=== PATIENT | male | born 1955 | race Caucasian/White ===

== ENCOUNTER 2017-06-29 16:46 | Observation (INO) | payer OTHER ==
[2017-06-29 17:07] VITALS: BMI 24.3
[2017-06-29] MEDS ORDERED: SODIUM CHLORIDE 1,000 ML IV STA (17:41)
[2017-06-29 17:46] LABS: BASOPHIL 1.4 % (0-2.0); EOSINOPHIL 0.7 % (0-4.5); MCH 29.2 pg (25.7-33.7); MCHC 33.5 g/dl (32.0-35.9); MEAN CELL VOLUME 87.3 fl (80-96); MEAN PLT VOLUME 9.9 fl (7.5-11.1); NEUTROPHILS 64.3 % (42.8-82.8); PLATELET COUNT 175 K/MM3 (134-434); RDW 13.9 % (11.9-15.9); WHITE BLOOD COUNT 8.5 K/mm3 (4.0-10.0)
[2017-06-29 17:57] LABS: INR 1.07 (0.82-1.09); PROTHROMBIN TIME (PATIENT) 11.8 SEC (9.98-11.88)
--- NOTE | 2017-06-29 17:59 | PDOC ---
History of Present Illness - General History Source: Patient, Family Exam Limitations: Clinical Condition <Calixto Heck - Last Filed: 06/29/17 18:43> - History of Present Illness Initial Comments: 06/29/17 18:00 The patient is a 62 year old male with history of multiple sclerosis brought in by EMS for altered mental status this afternoon. Per EMS, the patient was at [facility] for a neurology appointment went he went to the restroom, took off his pants, and went outside and started eating grass. The patient states he took off his pants because he "felt hot". Patient is a poor historian and provides a limited history. His and best friend at bedside states that the patient has not been himself for the past month. Patient states he took cyclobenzaprine today, but is unclear how much he took. No fever or chills. No nausea, vomiting , or diarrhea. <Susie Brady - Last Filed: 06/29/17 19:01> - General Chief Complaint: Altered Mental Status Stated Complaint: DEHYDRATION Time Seen by Provider: 06/29/17 16:54 Past History - Past Medical History Anemia: No Asthma: No Cancer: No Cardiac Disorders: No CVA: No COPD: No CHF: No Dementia: No Diabetes: No GI Disorders: No Disorders: No HTN: No Hypercholesterolemia: No Liver Disease: No Seizures: No Thyroid Disease: No - Surgical History Abdominal Surgery: Yes (colon resection divertic,colostomy) Appendectomy: Yes Cardiac Surgery: No Lung Surgery: No Neurologic Surgery: No Orthopedic Surgery: Yes (mari acl repair, r TKR) - Suicide/Smoking/Psychosocial Hx Smoking History: Current every day smoker Have you smoked in the past 12 months: Yes Number of Cigarettes Smoked Daily: 10 Information on smoking cessation initiated: No Hx Alcohol Use: No (denies) Drug/Substance Use Hx: No (denies) Substance Use Type: None, Marijuana Hx Substance Use Treatment: No <Calixto Heck - Last Filed: 06/29/17 18:43> <Susie Brady - Last Filed: 06/29/17 19:01> - Past Medical History Allergies/Adverse Reactions: Allergies Allergy/AdvReac Type Severity Reaction Status Date / Time celecoxib [From Celebrex] Allergy Intermediate Hives Verified 06/29/17 17:08 Home Medications: Ambulatory Orders Cyclobenzaprine HCl [Flexeril -] 10 mg PO PRN PRN #0 tablet 12/04/11 Exalgo 8 mg PO HS #0 12/04/11 Exalgo 16 mg PO DAILY #0 12/04/11 Pregabalin [Lyrica] 200 mg PO TID #0 capsule 12/04/11 Dalfampridine [Ampyra] 10 mg PO DAILY 06/29/17 Dextroamphetamine Sulfate [Dexedrine] 5 mg PO DAILY 06/29/17 Review of Systems - Review of Systems Able to Perform ROS?: Yes Comments:: 06/29/17 18:21 ROS per HPI and otherwise limited by AMS. <Susie Brady - Last Filed: 06/29/17 19:01> *Physical Exam - Vital Signs Last Vital Signs Temp Pulse Resp BP Pulse Ox 98.7 F 115 H 18 155/102 99 06/29/17 17:00 06/29/17 17:00 06/29/17 17:00 06/29/17 17:00 06/29/17 17:00 <Calixto Heck - Last Filed: 06/29/17 18:43> - Vital Signs Last Vital Signs Temp Pulse Resp BP Pulse Ox 98.7 F 115 H 18 155/102 99 06/29/17 17:00 06/29/17 17:00 06/29/17 17:00 06/29/17 17:00 06/29/17 17:00 - Physical Exam Comments: 06/29/17 18:23 GENERAL: Awake, alert, and oriented to year and location but doesn't know month. Intermittently confused but alert and responds to verbal stimuli. HEAD: No signs of trauma EYES: PERRLA, EOMI, sclera anicteric, conjunctiva clear ENT: Auricles normal inspection, hearing grossly normal, nares patent, oropharynx clear without exudates. Moist mucosa NECK: Normal ROM, supple, no lymphadenopathy, JVD, or masses LUNGS: Breath sounds equal, clear to auscultation bilaterally. No wheezes, and no crackles HEART: Tachycardic rate, normal S1 and S2, no murmurs, rubs or gallops ABDOMEN: Soft, nontender, normoactive bowel sounds. No guarding, no rebound. No masses EXTREMITIES: Normal range of motion, no edema. No clubbing or cyanosis. No cords, erythema, or tenderness NEUROLOGICAL: Cranial nerves II through XII grossly intact. Occasionally slurred speech, gait deferred. SKIN: Warm, Dry, normal turgor, no rashes or lesions noted. <Susie Brady - Last Filed: 06/29/17 19:01> Heart Score/ECG Review #1 ECG reviewed & interpreted by me at: 17:10 06/29/17 17:51 NSR 112, no std/koffi, TWI III, normal axis, normal intervals, QC 464 msec <Calixto Heck - Last Filed: 06/29/17 18:43> ED Treatment Course - LABORATORY CBC & Chemistry Diagram: 06/29/17 17:37 06/29/17 17:37 - ADDITIONAL ORDERS Additional order review: Laboratory Results 06/29/17 17:05 POC Glucometer 111.01440 06/29/17 17:05 POC Glucometer 111.39612 - RADIOLOGY Radiology Studies Ordered: Category Date Time Status HEAD CT WITHOUT CONTRAST [CT] Stat CT Scan 06/29/17 17:24 Ordered CHEST X-RAY PORTABLE* [RAD] Stat Radiology 06/29/17 17:24 Ordered <Calixto Heck - Last Filed: 06/29/17 18:43> - LABORATORY CBC & Chemistry Diagram: 06/29/17 17:37 06/29/17 17:37 - ADDITIONAL ORDERS Additional order review: Laboratory Results 06/29/17 17:05 POC Glucometer [id number] 06/29/17 17:05 POC Glucometer 111.99191 - RADIOLOGY Radiograph Interpretation: 06/29/17 18:[address] without contrast, read and reviewed by Dr. Ford Impression: Moderate bilateral periventricular white matter hypodense foci are noted - ? microvascular ischemic gliosis, demyelinating disease, acute/chronic toxic metabolic encephalopathy, AIDS, encephalopathy, vasculitis. Correlate clinically. A fracture is seen in the mid aspect of the right zygomatic arch which is probably chronic. Correlate clinically. <Susie Brady - Last Filed: 06/29/17 19:01> Medical Decision Making - Medical Decision Making 06/29/17 17:51 A portion of this note was documented by scribe services under my direction. I have reviewed the details of the note, within reason, and agree with the documentation with the following case summary and management plan written by me. Patient treated in the ED. Nursing notes are reviewed and incorporated into the medical decision-making. Vital signs reviewed. Peripheral IV access obtained by the nurse, laboratory studies are drawn and sent, reviewed and interpreted by myself. Vital Signs Temp Pulse Resp BP Pulse Ox 98.7 F 115 H 18 155/102 99 06/29/17 17:00 10 17:00 06/29/17 17:00 06/29/17 17:00 06/29/17 17:00 62-year-old With past medical history multiple sclerosis presents with altered mental status. The patient's has noted that the last 2 weeks, patient has become slightly increasingly more confused and "loopy". The patient has ran out of her regular pain medications has been using cyclobenzaprine as well as Lyrica for his multiple sclerosis. It is unclear what his dosage that he's been taking. Today, he went to an appointment at [facility]. Patient was found in the parking lot to be pansinus and eating grass. Patient denies any pain. It is unclear what the etiology is. It may potentially be effects of anticholinergic toxicity in the setting of lyrica and cyclobenzaprine. However, differential is broad and includes infectious, metabolic, neurological, cardiology. We'll obtain head CT, labs and likely admit the patient to hospital for further evaluation. 06/29/17 18:43 CBC, BMP 06/29/17 17:37 06/29/17 17:37 CMP Sodium 141 mmol/L (136-145) 06/29/17 17:37 Potassium 4.2 mmol/L (3.5-5.1) 06/29/17 17:37 Chloride 107 mmol/L (98-107) 06/29/17 17:37 Carbon Dioxide 29 mmol/L (21-32) 06/29/17 17:37 Anion Gap 5 (8-16) L 06/29/17 17:37 BUN 25 mg/dL (7-18) H D 06/29/17 17:37 Creatinine 1.2 mg/dL (0.7-1.3) D 06/29/17 17:37 Creat Clearance w eGFR > 60 (>60) 06/29/17 17:37 POC Glucometer 111.41280 UNITS (()) 06/29/17 17:05 Random Glucose 89 mg/dL (74-106) 06/29/17 17:37 Lactic Acid 0.7 mmol/L (0.4-2.0) 06/29/17 17:37 Calcium 9.0 mg/dL (8.5-10.1) 06/29/17 17:37 Phosphorus 3.8 mg/dL (2.5-4.9) 06/29/17 17:37 Magnesium 2.2 mg/dL (1.8-2.4) 06/29/17 17:37 Total Bilirubin 0.4 mg/dL (0.2-1.0) D 06/29/17 17:37 AST 43 U/L (15-37) H D 06/29/17 17:37 ALT 54 U/L (12-78) D 06/29/17 17:37 Alkaline Phosphatase 97 U/L (45-117) 06/29/17 17:37 Creatine Kinase 213 IU/L (39-308) 06/29/17 17:37 Troponin I 0.05 ng/ml (0.00-0.05) 06/29/17 17:37 Total Protein 6.7 g/dl (6.4-8.2) 06/29/17 17:37 Albumin 3.5 g/dl (3.4-5.0) 06/29/17 17:37 TSH 0.68 uIU/ml (0.358-3.74) 06/29/17 17:[address] reviewed. Findings likely consistent with his MS Urine tox pending Salicylates and acetaminophen negative. It may very well be possible that this is medication related (anti-cholinergic). Pt is responsive to verbal stimuli. Pt's here at bedside. Given these circumstances, case discussed with DR. Courtney who accepts the patient to tele observation. Case discussed in detail with admitting physician including history, physical exam and ancillary studies. Admitting physician has assumed care for the patient, will follow all pending diagnostics and will complete the evaluation and treatment. <Calixto Heck - Last Filed: 06/29/17 18:43> *DC/Admit/Observation/Transfer - Discharge Dispostion Admit: Yes <Calixto Heck - Last Filed: 06/29/17 18:43> - Attestations Scribe Attestion: 06/29/17 18:23 Documentation prepared by Susie Brady, acting as medical record retrieval specialist for Calixto Heck MD. <Susie Brady - Last Filed: 06/29/17 19:01> Diagnosis at time of Disposition: Multiple sclerosis Altered mental status Qualifiers: Altered mental status type: unspecified Qualified Code(s): R41.82 - Altered mental status, unspecified - Discharge Dispostion Condition at time of disposition: Stable - Referrals Referrals: Jordon Mejia [Primary Care Provider] -
[2017-06-29 18:00] LABS: ACTIVATED PTT 29.8 SECONDS (26.9-34.4)
[2017-06-29 18:05] LABS: ALBUMIN 3.5 g/dl (3.4-5.0); ANION GAP 5 (8-16); BILIRUBIN,TOTAL 0.4 mg/dL (0.2-1.0); CO2 29 mmol/L (21-32); CREATININE 1.2 mg/dL (0.7-1.3); GLUCOSE,RANDOM 89 mg/dL (74-106); MAGNESIUM 2.2 mg/dL (1.8-2.4); PHOSPHOROUS 3.8 mg/dL (2.5-4.9); SGOT/AST 43 U/L (15-37); SGPT/ALT 54 U/L (12-78); TOT PROT 6.7 g/dl (6.4-8.2)
[2017-06-29 18:12] LABS: SALICYLATE < 4.0 mg/dl (0.0-30.0)
[2017-06-29 18:14] LABS: ALK PHOS 97 U/L (45-117); CPK 213 IU/L (39-308); THYROID STIMULATING HORMONE 0.68 uIU/ml (0.358-3.74); TROPONIN I 0.05 ng/ml (0.00-0.05)
[2017-06-29] MEDS ORDERED: amLODIPine BESYLATE 5 MG TABLET (FP) ONE (19:35)
--- NOTE | 2017-06-29 20:14 | HP ---
Admitting History and Physical - Primary Care Physician PCP: Damian Courtney - Admission History of Present Illness: 62 year old male with history of multiple sclerosis brought in by EMS for altered mental status this afternoon. Per EMS, the patient was at [facility] for a neurology appointment went he went to the restroom, took off his pants, and went outside and started eating grass. The patient states he took off his pants because he "felt hot". Patient is a poor historian and provides a limited history. His and best friend at bedside states that the patient has not been himself for the past month. Patient states he took cyclobenzaprine today, but is unclear how much he took. No fever or chills. history taken from ER records - Smoking History Smoking history: Current every day smoker Have you smoked in the past 12 months: Yes Aproximately how many cigarettes per day: 10 - Alcohol/Substance Use Hx Alcohol Use: No (denies) Home Medications - Allergies Allergies/Adverse Reactions: Allergies Allergy/AdvReac Type Severity Reaction Status Date / Time celecoxib [From Celebrex] Allergy Intermediate Hives Verified 06/29/17 17:08 - Home Medications Home Medications: Ambulatory Orders Exalgo 8 mg PO HS #0 12/04/11 Exalgo 16 mg PO DAILY #0 12/04/11 Dextroamphetamine Sulfate [Dexedrine] 5 mg PO DAILY 06/29/17 Amlodipine Besylate [Norvasc -] 10 mg PO DAILY #30 tablet 07/02/17 Quetiapine Fumarate [Seroquel -] 25 mg PO HS #30 tablet 07/02/17 Physical Examination Vital Signs: Vital Signs Temperature 98.7 F 06/29/17 17:00 Pulse Rate 101 H 06/29/17 18:22 Respiratory Rate 18 06/29/17 18:22 Blood Pressure 170/106 06/29/17 18:22 O2 Sat by Pulse Oximetry (%) 100 06/29/17 18:22 Constitutional: Yes: No Distress HENT: Yes: Atraumatic Neck: Yes: Supple Cardiovascular: Yes: Regular Rate and Rhythm Respiratory: Yes: CTA Bilaterally Gastrointestinal: Yes: Normal Bowel Sounds Extremities: Yes: WNL Problem List - Problems (1) Altered mental status Assessment/Plan: hold all meds patient looking more awake neuro consult Code(s): R41.82 - ALTERED MENTAL STATUS, UNSPECIFIED Qualifiers: Altered mental status type: unspecified Qualified Code(s): R41.82 - Altered mental status, unspecified; R41.82 - Altered mental status, unspecified (2) Multiple sclerosis Assessment/Plan: on meds...will hold for now Code(s): G35 - MULTIPLE SCLEROSIS Assessment/Plan Laboratory Tests 06/29/17 06/29/17 06/29/17 17:05 17:37 17:37 WBC 8.5 RBC 4.45 Hgb 13.0 Hct 38.8 MCV 87.3 MCH 29.2 MCHC 33.5 RDW 13.9 Plt Count 175 D MPV 9.9 Neutrophils % 64.3 D Lymphocytes % 26.0 Monocytes % 7.6 Eosinophils % 0.7 D Basophils % 1.4 PT with INR 11.80 INR 1.07 PTT (Actin FS) 29.8 Sodium Potassium Chloride Carbon Dioxide Anion Gap BUN Creatinine Creat Clearance w eGFR POC Glucometer 111.77783 Random Glucose Lactic Acid Calcium Phosphorus Magnesium Total Bilirubin AST ALT Alkaline Phosphatase Creatine Kinase Creatine Kinase Index CK-MB (CK-2) Troponin I Total Protein Albumin TSH Salicylates Acetaminophen 06/29/17 06/29/17 06/29/17 17:37 17:37 17:37 WBC RBC Hgb Hct MCV MCH MCHC RDW Plt Count MPV Neutrophils % Lymphocytes % Monocytes % Eosinophils % Basophils % PT with INR INR PTT (Actin FS) Sodium 141 Potassium 4.2 Chloride 107 Carbon Dioxide 29 Anion Gap 5 L BUN 25 H D Creatinine 1.2 D Creat Clearance w eGFR > 60 POC Glucometer Random Glucose 89 Lactic Acid 0.7 Calcium 9.0 Phosphorus 3.8 Magnesium 2.2 Total Bilirubin 0.4 D AST 43 H D ALT 54 D Alkaline Phosphatase 97 Creatine Kinase 213 Creatine Kinase Index 3.1 CK-MB (CK-2) 6.811 H Troponin I 0.05 Total Protein 6.7 Albumin 3.5 TSH 0.68 Salicylates < 4.0 Acetaminophen < 2.0 L Active Medications Generic Name Dose Route Start Last Admin Trade Name Freq PRN Reason Stop Dose Admin Acetaminophen 650 mg 06/29/17 20:15 Tylenol - PO Q6H PRN FEVER OR PAIN Amlodipine Besylate 5 mg 06/29/17 21:30 06/30/17 10:09 Norvasc - PO 5 mg DAILY KAVON Administration Non-Formulary Medication 10 mg 06/30/17 10:00 Dalfampridine [Ampyra] PO DAILY KAVON
[2017-06-29] MEDS ORDERED: ACETAMINOPHEN 325 MG TABLET (FP) PO PRN (20:15)
[2017-06-29] MEDS ORDERED: amLODIPine BESYLATE 5 MG TABLET (FP) PO ONE (20:23)
[2017-06-29 20:36] LABS: URINE APPEARANCE CLEAR; URINE BILIRUBIN NEGATIVE (NEGATIVE); URINE BLOOD NEGATIVE (NEGATIVE); URINE COLOR STRAW; URINE GLUCOSE (UA) NEGATIVE (NEGATIVE); URINE KETONE NEGATIVE (NEGATIVE); URINE LEUK ESTERASE NEGATIVE (NEGATIVE); URINE NITRITE NEGATIVE (NEGATIVE); URINE PROTEIN NEGATIVE (NEGATIVE); URINE UROBILINOGEN NEGATIVE mg/dL (0.2-1.0)
[2017-06-29 20:41] LABS: PLATELET ESTIMATE ADEQUATE (NORMAL)
[2017-06-29 20:59] LABS: URINE MARIJUANA THC POSITIVE ng/ml (CUTOFF=50)
[2017-06-29] MEDS: amLODIPine BESYLATE 5 MG TABLET (FP) PO SCH (22:00)
--- NOTE | 2017-06-30 09:36 | EKG ---
Test Reason : Blood Pressure : / mmHG Vent. Rate : 112 BPM Atrial Rate : 112 BPM P-R Int : 140 ms QRS Dur : 088 ms QT Int : 340 ms P-R-T Axes : 037 058 047 degrees QTc Int : 464 ms SINUS TACHYCARDIA OTHERWISE NORMAL ECG WHEN COMPARED WITH ECG OF 11-JAN-2012 13:56, NO SIGNIFICANT CHANGE WAS FOUND Confirmed by BRANDI VERA MD ([id number]) on 06/30/2017 9:36:24 AM Referred By: Confirmed By:BRANDI VERA MD
[2017-06-30] MEDS ORDERED: PATIENT'S OWN MEDICATION (NON-FORMULARY) (Dalfampridine [Ampyra] 10 MG) PO SCH (10:00)
[2017-06-30] MEDS: amLODIPine BESYLATE 5 MG TABLET (FP) PO SCH (10:09)
--- NOTE | 2017-06-30 13:21 | PN ---
Progress Note, Physician History of Present Illness: feeling better - Current Medication List Current Medications: Active Medications Acetaminophen (Tylenol -) 650 mg PO Q6H PRN PRN Reason: FEVER OR PAIN Amlodipine Besylate (Norvasc -) 5 mg PO DAILY [facility] Last Admin: 06/30/17 10:09 Dose: 5 mg Non-Formulary Medication (Dalfampridine [Ampyra]) 10 mg PO DAILY [facility] - Objective Vital Signs: Vital Signs Temperature 98.3 F 06/30/17 10:00 Pulse Rate 94 H 06/30/17 10:00 Respiratory Rate 18 06/30/17 10:00 Blood Pressure 169/110 06/30/17 10:00 O2 Sat by Pulse Oximetry (%) 99 06/30/17 05:00 Constitutional: Yes: No Distress HENT: Yes: Atraumatic Neck: Yes: Supple Cardiovascular: Yes: Regular Rate and Rhythm Respiratory: Yes: CTA Bilaterally Gastrointestinal: Yes: Normal Bowel Sounds Extremities: Yes: WNL Neurological: Yes: Alert, Oriented Labs: INR, PTT INR 1.07 (0.82-1.09) 06/29/17 17:37 Problem List - Problems (1) Altered mental status Assessment/Plan: hold all meds patient much alert and oriented today neuro to see pt Code(s): R41.82 - ALTERED MENTAL STATUS, UNSPECIFIED Qualifiers: Altered mental status type: unspecified Qualified Code(s): R41.82 - Altered mental status, unspecified; R41.82 - Altered mental status, unspecified (2) Multiple sclerosis Assessment/Plan: on meds Code(s): G35 - MULTIPLE SCLEROSIS
--- NOTE | 2017-06-30 19:39 | CONSULT ---
Consult - text type - Consultation Consultation Note: NEUROLOGY CONSULTATION is greatly appreciated: This 62 yo RH man is a disabled [place]ian [employer] with h/o HTN and Multiple Sclerosis. Maintained on amlodipine, Rebif (TIW), ampyra, lyrica, amphetamine, Hydromorphone and cyclobenzaprine. Family describes at least a few weeks of increasing confusing, unusual behavior , punctuated by disrobing in public (at [employer]) and eating grass, preciptating admission. Pt attributes changes to "taking a whiskey" but does c/o increased word finding difficulty. CT of head (reviewed): Mild atrophy and diffuse white matter lucencies. Labs sig for Marijuana and amphetamines on the tox screen. JULES: Neg Lhermittes. No external head trauma. NEURO: Ox 3. some paraphasic errors. Sl dysarthric speech CN II-XII sig for nystagmus Motor: No drift. Normal strength. Brisk reflexes. B/L Babinskis. Reduced Evy Coord: No FTN dystaxia Sensory: Normal vibration. Romberg +/- Gait: Sl wide-based and shuffling. IMP: Mild B/L cerebral dysfunction c/w Chronic MS Recent changes possibly due to Toxic-metabolic encephalopathy +/- Exacerbation of MS. SUGGEST: D/C ampyra, hydromorphone, cyclobenzaprine, amphetamines. MRI of brain (C-/C+) Check B12, TSH, RPR, ESR, CRP, Ammonia level R/O occult infection Continue Rebif TIW for now...if MRI show active disease would check ADAM virus titre and switch to Tysabri if Negative. Thank you very much, Omar Caal MD
[2017-06-30] MEDS: QUEtiapine FUMARATE 25 MG TABLET (FP) PO SCH (21:24)
[2017-07-01 08:02] LABS: THYROID STIMULATING HORMONE 1.42 uIU/ml (0.358-3.74)
[2017-07-01] MEDS: amLODIPine BESYLATE 5 MG TABLET (FP) PO SCH (09:41)
[2017-07-01] MEDS ORDERED: NICOTINE POLACRILEX 2 MG GUM BUC PRN (13:21)
--- NOTE | 2017-07-01 17:32 | PN ---
Progress Note, Physician History of Present Illness: feeling good - Current Medication List Current Medications: Active Medications Acetaminophen (Tylenol -) 650 mg PO Q6H PRN PRN Reason: FEVER OR PAIN Last Admin: 06/30/17 21:24 Dose: 650 mg Amlodipine Besylate (Norvasc -) 5 mg PO DAILY [facility] Last Admin: 07/01/17 09:41 Dose: 5 mg Nicotine Polacrilex (Nicorette Gum -) 2 mg BUC Q2H PRN PRN Reason: NICOTINE REPLACEMENT RX Quetiapine Fumarate (Seroquel -) 25 mg PO HS [facility] Last Admin: 06/30/17 21:24 Dose: 25 mg - Objective Vital Signs: Vital Signs Temperature 98.0 F 07/01/17 16:55 Pulse Rate 100 H 07/01/17 16:55 Respiratory Rate 16 07/01/17 16:55 Blood Pressure 156/98 07/01/17 16:55 O2 Sat by Pulse Oximetry (%) 100 07/01/17 08:17 Constitutional: Yes: No Distress HENT: Yes: Atraumatic Neck: Yes: Supple Cardiovascular: Yes: Regular Rate and Rhythm Respiratory: Yes: CTA Bilaterally Gastrointestinal: Yes: Normal Bowel Sounds Extremities: Yes: WNL Neurological: Yes: Alert, Oriented Labs: INR, PTT INR 1.07 (0.82-1.09) 06/29/17 17:37 Problem List - Problems (1) Altered mental status Assessment/Plan: hold all meds patient much alert and oriented today for mri per neuro Code(s): R41.82 - ALTERED MENTAL STATUS, UNSPECIFIED Qualifiers: Altered mental status type: unspecified Qualified Code(s): R41.82 - Altered mental status, unspecified; R41.82 - Altered mental status, unspecified (2) Multiple sclerosis Assessment/Plan: on meds Code(s): G35 - MULTIPLE SCLEROSIS
[2017-07-01] MEDS ORDERED: amLODIPine BESYLATE 5 MG TABLET (FP) PO ONE (22:30)
[2017-07-01] MEDS: QUEtiapine FUMARATE 25 MG TABLET (FP) PO SCH (22:31)
[2017-07-02 07:21] VITALS: PULSE 102
--- NOTE | 2017-07-02 08:55 | PN ---
Progress Note (short form) - Note Progress Note: NEUROLOGY FOLLOW-UP: Events and MRI reviewed. Patient examined. BP's still 160/90. Amlodipine increased from 5 to 10 mg/day. MRI of brain: Severe, diffuse, white matter disease including multiple periventricular black holes and brainstem plaques. No obvious enhancing lesions. Patient has no recollection of his behavioral exploits leading to admission ( supporting intoxication over MS as etiology). He claims his last exacerbation of MS was "many years ago." Exam: Few beats nystagmus. No obvious dystaxia Slowed Evy Brisk reflexes. Slightly wide-based. Slight shuffling. IMP: Chronic, stable, MS Toxic-metabolic encephalopathy (resolved). Suggest: Stable for D/C. Avoid narcotics and hallucinogens. Cont. Rebif TIW Neuro f/u as out patient. Thank you very much, Omar Caal MD
[2017-07-02] MEDS ORDERED: amLODIPine BESYLATE 10 MG TABLET (FP) PO SCH (10:00)
[2017-07-02 15:10] VITALS: BP 149/82; TEMP 97.7
--- NOTE | 2017-07-02 16:27 | DS ---
Physical Examination Vital Signs: Vital Signs Temperature 97.7 F 07/02/17 14:00 Pulse Rate 102 H 07/02/17 14:00 Respiratory Rate 18 07/02/17 14:00 Blood Pressure 149/82 07/02/17 14:00 O2 Sat by Pulse Oximetry (%) 98 07/02/17 07:21 Constitutional: Yes: No Distress HENT: Yes: Atraumatic Neck: Yes: Supple Cardiovascular: Yes: Regular Rate and Rhythm Respiratory: Yes: CTA Bilaterally Gastrointestinal: Yes: Normal Bowel Sounds Extremities: Yes: WNL Edema: No Peripheral Pulses WNL: Yes Neurological: Yes: Alert, Oriented Discharge Summary Reason For Visit: ALTERED MENTAL STATUS; MULTIPLE SCLEROSIS Current Active Problems Altered mental status (Acute) Multiple sclerosis (Acute) Condition: Stable - Instructions Diet, Activity, Other Instructions: Resume home meds, avoid narcotics and hallucinogens. Follow-up with your neurologist as scheduled Referrals: Jordon Mejia [Primary Care Provider] - Disposition: HOME - Home Medications Comprehensive Discharge Medication List: Ambulatory Orders Exalgo 8 mg PO HS #0 12/04/11 Exalgo 16 mg PO DAILY #0 12/04/11 Dextroamphetamine Sulfate [Dexedrine] 5 mg PO DAILY 06/29/17 Amlodipine Besylate [Norvasc -] 10 mg PO DAILY #30 tablet 07/02/17 Quetiapine Fumarate [Seroquel -] 25 mg PO HS #30 tablet 07/02/17 dc home follow up neurology next week cont rebif per neuro
== END 2017-07-02 17:04 | disposition home or self-care (01) ==
LOC: JER 16:46 → JERBED 18:45 → J4W 20:59
PROVIDERS: ADMIT Internal Medicine; ATTEND Internal Medicine
PROC: 3E0337Z Introduction of Electrolytic and Water Balance Substance into Peripheral Vein, Percutaneous Approach (ICD-10-PCS; principal; 2017-06-29)
DX: R41.82 Altered mental status, unspecified (principal); G35 Multiple sclerosis; F17.210 Nicotine dependence, cigarettes, uncomplicated; Z88.8 Allergy status to other drugs, medicaments and biological substances
CPT/HCPCS: 36415; 70450-TC; 70553-TC; 71010-TC; 80053; 80307; 81003; 82553; 82607; 83605; 83735; 84100; 84425; 84443; 84484; 85025; 85610; 85730; 87086; 93005; 93010; 96360; 99284-25; G0378

== ENCOUNTER 2017-11-25 14:54 | Inpatient (IN) | payer OTHER ==
--- NOTE | 2017-11-25 15:05 | PDOC ---
Rapid Medical Evaluation Time Seen by Provider: 11/25/17 14:59 Medical Evaluation: Allergies Allergy/AdvReac Type Severity Reaction Status Date / Time celecoxib [From Celebrex] Allergy Intermediate Hives Verified 11/25/17 14:59 11/25/17 14:59 I have performed a brief in-person evaluation of this patient. The patient presents with a chief complaint of: "i'm bleeding internally" - rectal bleeding since this today, originally bright blood, "then it got darker red", minimal pain to abdomen, +nausea, denies dizziness lightheadedness, SOB Pertinent physical exam findings: BP 208/114 I have ordered the following: labs, EKG The patient will proceed to the ED for further evaluation. Discharge Disposition - Diagnosis Rectal bleeding - Referrals - Patient Instructions - Post Discharge Activity
[2017-11-25 15:29] LABS: BASO % 0.2 % (0-2.0); HEMATOCRIT 44.6 % (35.4-49); HEMOGLOBIN 14.8 GM/dL (11.7-16.9); LYMPH % 8.3 % (8-40); MCH 28.9 pg (25.7-33.7); MCHC 33.3 g/dl (32.0-35.9); MEAN CELL VOLUME 86.8 fl (80-96); MEAN PLT VOLUME 9.4 fl (7.5-11.1); MONO % 7.2 % (3.8-10.2); NEUT % 84.3 % (42.8-82.8); PLATELET COUNT 132 K/MM3 (134-434); RBC 5.13 M/mm3 (4.00-5.60); RETICULOCYTES 0.84 % (0.5-1.5); WHITE BLOOD COUNT 18.5 K/mm3 (4.0-10.0)
--- NOTE | 2017-11-25 15:33 | PDOC ---
History of Present Illness - General Chief Complaint: Rectal Bleed Stated Complaint: RECTAL BLEEDING Time Seen by Provider: 11/25/17 14:59 History Source: Patient, Spouse - History of Present Illness Timing/Duration: reports: intermittent Past History - Past Medical History Allergies/Adverse Reactions: Allergies Allergy/AdvReac Type Severity Reaction Status Date / Time celecoxib [From Celebrex] Allergy Intermediate Hives Verified 11/25/17 14:59 Home Medications: Ambulatory Orders Dextroamphetamine Sulfate [Dexedrine] 20 mg PO 5XD 06/29/17 Dalfampridine [Ampyra] 10 mg PO BID 11/25/17 Hydromorphone HCl [Exalgo] 8 mg PO HS 11/25/17 Hydromorphone HCl [Exalgo] 16 mg PO AM 11/25/17 Pregabalin [Lyrica] 200 mg PO TID 11/25/17 Cyclobenzaprine HCl [Flexeril 10 mg] 10 mg PO DAILY PRN 11/26/17 Fluticasone Prop 0.05% Nasal [Flonase -] 1 spray NS PRN 11/26/17 Amlodipine Besylate [Norvasc -] 5 mg PO DAILY #30 tablet 11/27/17 Lisinopril [Prinivil] 20 mg PO DAILY #30 tablet 11/27/17 Lactobacillus Acidophilus [Bacid -] 1 each PO DAILY #7 capsule 11/29/17 Levofloxacin 750 mg PO DAILY #6 tablet 11/29/17 Vancomycin HCl 125 mg PO Q6H #42 capsule 11/29/17 metroNIDAZOLE [Flagyl -] 500 mg PO TID #18 tablet 11/29/17 Anemia: No Asthma: No Cancer: No Cardiac Disorders: No CVA: No COPD: No CHF: No Dementia: No Diabetes: No GI Disorders: No Disorders: No HTN: Yes Hypercholesterolemia: No Liver Disease: No Seizures: No Thyroid Disease: No Other medical history: MULTIPLE SCLEROSIS - Surgical History Abdominal Surgery: Yes (colon resection divertic,colostomy) Appendectomy: Yes Cardiac Surgery: No Lung Surgery: No Neurologic Surgery: No Orthopedic Surgery: Yes (mari acl repair, r TKR) - Suicide/Smoking/Psychosocial Hx Smoking History: Current every day smoker Have you smoked in the past 12 months: Yes Number of Cigarettes Smoked Daily: 18 Information on smoking cessation initiated: No Hx Alcohol Use: No (denies) Drug/Substance Use Hx: No (denies) Substance Use Type: None, Marijuana Hx Substance Use Treatment: No Review of Systems - Review of Systems Constitutional: No: Chills, Fever ABD/GI: Yes: Blood Streaked Bowels. No: Constipated, Diarrhea, Nausea, Vomiting , Tarry Stools : No: Dysuria *Physical Exam - Vital Signs Last Vital Signs Temp Pulse Resp BP Pulse Ox 98.1 F 94 H 18 178/118 99 11/25/17 14:59 11/25/17 14:59 11/25/17 14:59 11/25/17 14:59 11/25/17 14:59 - Physical Exam General Appearance: Yes: Appropriately Dressed. No: Apparent Distress Neck: positive: Supple Respiratory/Chest: negative: Respiratory Distress Gastrointestinal/Abdominal: positive: Normal Bowel Sounds, Tender (LLQ), Soft, Guarding (diffusely). negative: Distended, Rebound Rectal Exam: positive: heme positive stool. negative: melena, hemorrhoids Integumentary: positive: Dry, Warm Neurologic: positive: Fully Oriented, Alert, Normal Mood/Affect ED Treatment Course - LABORATORY CBC & Chemistry Diagram: 11/29/17 06:00 11/27/17 15:10 - ADDITIONAL ORDERS Additional order review: 11/25/17 15:20 RBC 5.13 MCV 86.8 MCHC 33.3 RDW 14.0 MPV 9.4 Neutrophils % 84.3 H D Lymphocytes % 8.3 D Monocytes % 7.2 Eosinophils % 0.0 D Basophils % 0.2 Medical Decision Making - Medical Decision Making 11/25/17 15:33 62-year-old male history of hypertension, not on meds, MS, brought in by for GI bleed today. Patient states he noticed bright red blood in toilet during BM today. Patient appears to be a poor historian and does not quite remember how many episodes of GI bleeding he had or how much he bled. Complaining of "mild abdominal pain" but no nausea, vomiting, diarrhea, constipation, fever, chills, weakness, dizziness or shortness of breath. States the last time he had GI bleed was years ago when he had a perforated diverticulitis. No h/o hemorrhoids. Does not remember last colonoscopy. On baby aspirin at home See exam GIB w/ abd pain Sig hypertensive in ED (not on meds though carry a dx of HTN) Abd w/ ttp to LLQ w/ diffuse guarding, rectal exam w/ brown stool mixed w/ BRB grossly Recurrent diverticulitis vs ischemic colitis -IVF -labs including lactate -CT -admit 11/25/17 15:54 White count of 18 with normal H&H. Antibiotics in progress 11/25/17 16:03 Trop of 0.07 w/ unremarkable EKG as discussed with Dr. Gottlieb. Troponin remains elevated to 218/111 on monitor. Will give 20 mg of IV labetalol slowly as discussed with ED attending. Patient has no chest pain or shortness of breath at this time. Will also trend troponin. 11/25/17 18:53 Colitis to distal transverse and proximal descending colon on CT, no evidence of diverticulitis. Lactate wnl. Will admit patient at this time 11/25/17 19:00 Hospitalist informed of patient, will contact GARFIELD Cedeño to admit *DC/Admit/Observation/Transfer Diagnosis at time of Disposition: Rectal bleeding - Discharge Dispostion Disposition: HOME Condition at time of disposition: Improved - Prescriptions - Referrals - Patient Instructions - Post Discharge Activity
--- NOTE | 2017-11-25 15:33 | PDOC ---
*Physical Exam - Vital Signs Last Vital Signs Temp Pulse Resp BP Pulse Ox 98.1 F 94 H 18 178/118 99 11/25/17 14:59 11/25/17 14:59 11/25/17 14:59 11/25/17 14:59 11/25/17 14:59 - Physical Exam Comments: 11/25/17 15:33 The patient was examined by [BUSTER Multani] under my direct supervision. I personally evaluated the patient. I concur with the above findings and the plan of care. ED Treatment Course - LABORATORY CBC & Chemistry Diagram: 11/25/17 15:20 11/25/17 15:20 - ADDITIONAL ORDERS Additional order review: 11/25/17 15:20 RBC 5.13 MCV 86.8 MCHC 33.3 RDW 14.0 MPV 9.4 Neutrophils % 84.3 H D Lymphocytes % 8.3 D Monocytes % 7.2 Eosinophils % 0.0 D Basophils % 0.2 *DC/Admit/Observation/Transfer Diagnosis at time of Disposition: Rectal bleeding - Referrals - Patient Instructions - Post Discharge Activity
[2017-11-25] MEDS ORDERED: SODIUM CHLORIDE 500 ML IV STA (15:43)
[2017-11-25] MEDS ORDERED: CIPROFLOXACIN 400 MG/D5W 400 MG/200 ML IVPB IVPB ONE (15:45)
[2017-11-25 15:53] LABS: ALBUMIN 3.4 g/dl (3.4-5.0); ANION GAP 10 (8-16); BILIRUBIN,TOTAL 0.8 mg/dL (0.2-1.0); BLOOD UREA NITROGEN 23 mg/dL (7-18); CALCIUM 9.4 mg/dL (8.5-10.1); CHLORIDE 97 mmol/L (98-107); CO2 28 mmol/L (21-32); CREATININE 0.9 mg/dL (0.7-1.3); GLUCOSE,RANDOM 117 mg/dL (74-106); POTASSIUM 3.9 mmol/L (3.5-5.1); SGOT/AST 30 U/L (15-37); SGPT/ALT 29 U/L (12-78); SODIUM 135 mmol/L (136-145); TOT PROT 7.3 g/dl (6.4-8.2)
[2017-11-25 15:55] LABS: ALK PHOS 108 U/L (45-117)
[2017-11-25 16:06] LABS: INR 1.04 (0.82-1.09); PROTHROMBIN TIME (PATIENT) 11.7 SEC (9.98-11.88)
[2017-11-25 16:09] LABS: ACTIVATED PTT 32.2 SECONDS (26.9-34.4)
[2017-11-25] MEDS ORDERED: morphine CARPU-JECT 4 MG/1 ML DISP.SYRIN IVPUSH ONE ×2 (16:19→16:47)
[2017-11-25] MEDS ORDERED: LABETALOL HCL 5 MG/1 ML (100MG/20 ML VIAL) IVPUSH ONE (16:19)
[2017-11-25] MEDS ORDERED: LABETALOL HCL 5 MG/1 ML (200MG/40ML VIAL) IVPB ONE (16:22)
[2017-11-25] MEDS ORDERED: MORPHINE SULFATE 10 MG/1 ML *VIAL ONE ×2 (16:22→16:53)
[2017-11-25] MEDS ORDERED: ONDANSETRON 4 MG/2 ML VIAL ONE (16:28)
[2017-11-25] MEDS ORDERED: METOCLOPRAMIDE HCL INJECTION 10 MG/2 ML VIAL IVPB ONE (16:28)
[2017-11-25] MEDS ORDERED: METOCLOPRAMIDE HCL INJECTION 10 MG/2 ML VIAL ONE (16:29)
[2017-11-25] MEDS ORDERED: cloNIDine HCL 0.1 MG TABLET PO ONE (22:25)
[2017-11-25] MEDS ORDERED: cloNIDine HCL 0.1 MG TABLET ONE (22:53)
[2017-11-25] MEDS: SODIUM CHLORIDE 1,000 ML IV SCH (23:01)
--- NOTE | 2017-11-25 23:21 | HP ---
CHIEF COMPLAINT: Diarrhea, lethargy PCP: none, Dr. Cerna for neurology HISTORY OF PRESENT ILLNESS: The patient is a 62 yo m w/ PMH HTN, diverticulitis d/p resection, multiple sclerosis who was brought in by his for decreased appetite, lethargy and BRBPR. Patient is a poor historian and the majority of the history was obtained by the wide at bedside. On thursday night, the patient began to have a decreased appetite. since then, the patient has had minimal PO intake and has been progressively lethargic. The patient has also had numerous trips to the bathroom and noticed bright red blood mixed in with his stool beginning this evening. Patient is unsure of the frequency of his movements. Per patient's , he is at his baseline mentally and had had a decline in memory over the past year. Patient denies nausea, vomiting, constipation, sick contacts, recent travel, fevers or chills. ER course was notable for: (1) CT abdomen/Pelvis showing left sided colitis in the distal transverse and proximal descending colon (2) troponin .07, WBC 18.5 (3) BP 178/102 Recent Travel: none PAST MEDICAL HISTORY: HTN, MS, ADHD, diverticulitis PAST SURGICAL HISTORY: Colonic resection appendectomy total knee replacement ACL repairs Jaw surgery for fracture Social History: Smoking: smokes 18 cigs daily for 40 years Alcohol: 1-2 shots of whisky daily Drugs: smokes marijuana occasionally Family History: non-contributory Allergies celecoxib [From Celebrex] Allergy (Intermediate, Verified 11/25/17 14:59) Hives HOME MEDICATIONS: Home Medications Medication Instructions Recorded Dextroamphetamine Sulfate 15 mg PO DAILY 06/29/17 [Dexedrine] Dalfampridine [Ampyra] 10 mg PO BID 11/25/17 Hydromorphone HCl [Exalgo] 8 mg PO HS 11/25/17 Hydromorphone HCl [Exalgo] 16 mg PO AM 11/25/17 Pregabalin [Lyrica] 100 mg PO DAILY 11/25/17 REVIEW OF SYSTEMS CONSTITUTIONAL: Absent: fever, chills, diaphoresis, generalized weakness, malaise, loss of appetite, weight change HEENT: Absent: rhinorrhea, nasal congestion, throat pain, throat swelling, difficulty swallowing, mouth swelling, ear pain, eye pain, visual changes CARDIOVASCULAR: Absent: chest pain, syncope, palpitations, irregular heart rate, lightheadedness , peripheral edema RESPIRATORY: Absent: cough, shortness of breath, dyspnea with exertion, orthopnea, wheezing, stridor, hemoptysis GASTROINTESTINAL: Absent: abdominal distension, nausea, vomiting, constipation. GENITOURINARY: Absent: dysuria, frequency, urgency, hesitancy, hematuria, flank pain, genital pain MUSCULOSKELETAL: Absent: myalgia, arthralgia, joint swelling, back pain, neck pain SKIN: Absent: rash, itching, pallor HEMATOLOGIC/IMMUNOLOGIC: Absent: easy bleeding, easy bruising, lymphadenopathy, frequent infections ENDOCRINE: Absent: unexplained weight gain, unexplained weight loss, heat intolerance, cold intolerance NEUROLOGIC: Absent: headache, focal weakness or paresthesias, dizziness, unsteady gait, seizure, mental status changes, bladder or bowel incontinence PSYCHIATRIC: Absent: anxiety, depression, suicidal or homicidal ideation, hallucinations. PHYSICAL EXAMINATION Vital Signs - 24 hr 11/25/17 11/25/17 11/25/17 14:59 16:11 16:52 Temperature 98.1 F Pulse Rate 94 H Pulse Rate [ 79 94 H Apical] Respiratory 18 16 16 Rate Blood Pressure 178/118 Blood Pressure 214/119 184/107 [Left Arm] Blood Pressure 197/124 [Right Arm] O2 Sat by Pulse 99 100 Oximetry (%) 11/25/17 11/25/17 11/25/17 17:18 19:01 19:40 Temperature Pulse Rate Pulse Rate [ 82 82 115 H Apical] Respiratory 16 16 22 Rate Blood Pressure Blood Pressure [Left Arm] Blood Pressure 184/111 188/103 178/102 [Right Arm] O2 Sat by Pulse 100 100 98 Oximetry (%) GENERAL: Awake, alert, and fully oriented, in no acute distress. Patient taking longer to respond to questions and cannot remember much of his history. HEAD: Normal with no signs of trauma. EYES: Pupils equal, round and reactive to light, extraocular movements intact, sclera anicteric, conjunctiva clear. No lid lag. EARS, NOSE, THROAT: Ears normal, nares patent, oropharynx clear without exudates. Dry mucous membranes. NECK: Normal range of motion, supple without lymphadenopathy, JVD, or masses. LUNGS: Breath sounds equal, clear to auscultation bilaterally. No wheezes, and no crackles. No accessory muscle use. HEART: Regular rate and rhythm, normal S1 and S2 without murmur, rub or gallop. ABDOMEN: Soft, not distended, normoactive bowel sounds, diffuse tenderness to palpation with mild guarding, no rebound, no masses. No hepatomegaly or splenomegaly. Rectal exam: no masses felt, no external hemorrhoids, brown stool seen. LOWER EXTREMITIES: 2+ pulses, warm, well-perfused. No calf tenderness. No peripheral edema. NEUROLOGICAL: Cranial nerves II-X intact. Normal speech. PSYCHIATRIC: Cooperative. Good eye contact. Appropriate mood and affect. SKIN: Warm, dry, normal turgor, no rashes or lesions noted, normal capillary refill. Laboratory Results - last 24 hr 11/25/17 11/25/17 11/25/17 15:20 15:20 15:20 WBC 18.5 H D RBC 5.13 Hgb 14.8 D Hct 44.6 MCV 86.8 MCH 28.9 MCHC 33.3 RDW 14.0 Plt Count 132 L D MPV 9.4 Neutrophils % 84.3 H D Lymphocytes % 8.3 D Monocytes % 7.2 Eosinophils % 0.0 D Basophils % 0.2 Retic Count 0.84 PT with INR 11.70 INR 1.04 PTT (Actin FS) 32.2 Sodium 135 L Potassium 3.9 Chloride 97 L Carbon Dioxide 28 Anion Gap 10 BUN 23 H Creatinine 0.9 D Creat Clearance w eGFR > 60 Random Glucose 117 H D Lactic Acid Calcium 9.4 Total Bilirubin 0.8 D AST 30 D ALT 29 D Alkaline Phosphatase 108 Creatine Kinase 77 Troponin I 0.07 H D Total Protein 7.3 Albumin 3.4 Lipase Blood Type Antibody Screen 11/25/17 11/25/17 11/25/17 15:20 15:35 16:47 WBC RBC Hgb Hct MCV MCH MCHC RDW Plt Count MPV Neutrophils % Lymphocytes % Monocytes % Eosinophils % Basophils % Retic Count PT with INR INR PTT (Actin FS) Sodium Potassium Chloride Carbon Dioxide Anion Gap BUN Creatinine Creat Clearance w eGFR Random Glucose Lactic Acid 1.6 Calcium Total Bilirubin AST ALT Alkaline Phosphatase Creatine Kinase Troponin I Total Protein Albumin Lipase 76 Blood Type O POSITIVE Antibody Screen Negative ASSESSMENT/PLAN: The patient is a 62 yo m w/ PMH colitis, HTN, MS being admitted for acute colitis and BRBPR. #Bright red blood per rectum likely 2/2 colitis r/o GIB -NPO -Pain control -s/p levofloxacin in ED, will c/w -s/p flagyl in ED, will c/w -Stool culture, leukocytes, C.Diff, ova & parasites. -NS @ 42 -CBC q6h, Hb stable at this time. #Hypertensive urgency -s/p labetolol 20mg IV -troponin .07; will trend -Echo in am -clonidine .2 stat -lisinopril 20mg daily -amlodipine 5mg daily -rpt EKG in AM #Multiple sclerosis -patient currently asymptomatic -Patient on interferon, not due of dose at this time -resume remainder of patient's home medications #FEN -NS @42 -monitor lytes -NPO #Prophylaxis -SCDs until active bleed ruled out #Dispo -admit to tele Visit type - Emergency Visit Emergency Visit: Yes ED Registration Date: 11/25/17 Care time: The patient presented to the Emergency Department on the above date and was hospitalized for further evaluation of their emergent condition. - New Patient This patient is new to me today: Yes Date on this admission: 11/26/17 - Critical Care Critical Care patient: No Hospitalist Screening - Colonoscopy Questionnaire Colonoscopy Questionnaire: Colonoscopy Questionnaire - Patient: 50 - 75 years old and never had a screening colonoscopy: Unknown History of colon or rectal polyps, or CA: Unknown History of IBD, Crohn's disease or UC: Unknown History of abdominal radiation therapy as a child: Unknown - Relative: 1 with colon or rectal CA, or polyps at age 60 or younger: Unknown Colon or rectal CA diagnosed at age 45 or younger: Unknown Multiple relatives with colon or rectal CA: Unknown - Outcome: Screening Result: Negative Screen
--- NOTE | 2017-11-25 23:27 | PN ---
Teaching Attending Note Name of Resident: Tereso Ocampo ATTENDING PHYSICIAN STATEMENT I saw and evaluated the patient. Chart, data, imaging reviewed. I reviewed the resident's note and discussed the case with the resident. I agree with the resident's findings and plan as documented. SUBJECTIVE: 62 yo m w/ PMH HTN, multiple sclerosis on interferon injections who was brought in by his for decreased appetite, lethargy and BRBPR. 3 blood BMs - 11/25, associated with some abdominal pain. Denied any nausea or vomiting. No recent travels or exotic foods. No recent antibiotic use reported. Patient reported to be lethargic since thursday. ANA PAULA showed brown stool, no hemorrhoids. He was given levaquin and metronidazole in ER. Severe HTN in ER but asymptomatic. Denied any chest pain or SOB. OBJECTIVE: Last Vital Signs Temp Pulse Resp BP Pulse Ox 98.1 F 115 H 22 178/102 98 11/25/17 14:59 11/25/17 19:40 11/25/17 19:40 11/25/17 19:40 11/25/17 22:49 heent -no sinus tenderness neck - no masses noted cv -s1+s2+ RRR chest -CTA b/l abdomen - soft, nt, BS+ ext - no LE edema Rectal exam- brown stool found, no hemorrhoids Abnormal Lab Results 11/25/17 11/25/17 15:20 15:20 WBC 18.5 H D Plt Count 132 L D Neutrophils % 84.3 H D Sodium 135 L Chloride 97 L BUN 23 H Random Glucose 117 H D Troponin I 0.[address] abdomen/Pelvis showing left sided colitis in the distal transverse and proximal descending colon, no intraabdominal abscess noted CXR- seen by me- clear with no infiltrates, sharp costophrenic angles EKG-NSR, no acute ST- T changes ASSESSMENT AND PLAN: #Left sided colitis in distal transvere and proximal descending colon with BRBPR. ANA PAULA wnl. Likely infectious colitis. Should r/o Cdiff colitis. -send stool wbc, O,P, culture, Stool for C diff PCR -blood cultures x2 -Levofloxacin and metronidazole -monitor CBC -avoid blood thinners and ASA -gentle IVF hydration #Severe asymptomatic HTN -off htn meds. Mildly positive troponin however no chest pain or SOB. EKG w/ no significant st-t changes. Unlikely related to ACS. -admit to telemetry (pos trop ) -give clonidine 0.2mg PO stat -start ACEi and CCB -monitor BP closely -trend troponin #DVT ppx -scds
[2017-11-26 00:28] VITALS: BMI 21.9
[2017-11-26 06:30] LABS: BASO % 0.6 % (0-2.0); EOS % 0.2 % (0-4.5); HEMATOCRIT 39.3 % (35.4-49); HEMOGLOBIN 13.1 GM/dL (11.7-16.9); LYMPH % 13.7 % (8-40); MCH 29.1 pg (25.7-33.7); MCHC 33.3 g/dl (32.0-35.9); MEAN CELL VOLUME 87.3 fl (80-96); MEAN PLT VOLUME 10.2 fl (7.5-11.1); MONO % 8.1 % (3.8-10.2); NEUT % 77.4 % (42.8-82.8); PLATELET COUNT 126 K/MM3 (134-434); RDW 13.8 % (11.9-15.9); WHITE BLOOD COUNT 17.3 K/mm3 (4.0-10.0)
[2017-11-26 06:56] LABS: ALK PHOS 88 U/L (45-117); ANION GAP 12 (8-16); BILIRUBIN,TOTAL 0.8 mg/dL (0.2-1.0); BLOOD UREA NITROGEN 24 mg/dL (7-18); CALCIUM 8.7 mg/dL (8.5-10.1); CHLORIDE 99 mmol/L (98-107); CO2 26 mmol/L (21-32); CREATININE 0.9 mg/dL (0.7-1.3); GLUCOSE,RANDOM 99 mg/dL (74-106); MAGNESIUM 2.4 mg/dL (1.8-2.4); PHOSPHOROUS 3.8 mg/dL (2.5-4.9); POTASSIUM 3.9 mmol/L (3.5-5.1); SGOT/AST 22 U/L (15-37); SGPT/ALT 20 U/L (12-78); SODIUM 137 mmol/L (136-145); TOT PROT 6.2 g/dl (6.4-8.2)
--- NOTE | 2017-11-26 07:50 | PN ---
<Ford Echavarria - Last Filed: 11/26/17 11:19> Physical Exam: SUBJECTIVE: No acute overnight events. Patient states that he has had bloody diarrhea and abdominal pain since yesterday. He has a hx of diverticulitis s/p colonic resection. Currently states that his pain has improved. Denies fevers, chills, chest pain, SOB, nausea, vomiting. OBJECTIVE: Vital Signs Period Temp Pulse Resp BP Sys/Saleem Pulse Ox Last 24 Hr 98 F-98.1 F 78-115 16-22 161-214/90-124 98-100 GEN: A&Ox3, no acute distress CV: RRR, systolic murmur noted in 2nd R intercostal space radiating to carotids Pulm: CTA Abd: Soft, nontender, BS present, mild tenderness in b/l lower quadrants Ext: No edema, 2+ pulses bilaterally Neuro: CN intact, sluggish to respond to questions Laboratory Results - last 24 hr 11/25/17 11/25/17 11/25/17 15:20 15:20 15:20 WBC 18.5 H D RBC 5.13 Hgb 14.8 D Hct 44.6 MCV 86.8 MCH 28.9 MCHC 33.3 RDW 14.0 Plt Count 132 L D MPV 9.4 Neutrophils % 84.3 H D Lymphocytes % 8.3 D Monocytes % 7.2 Eosinophils % 0.0 D Basophils % 0.2 Retic Count 0.84 PT with INR 11.70 INR 1.04 PTT (Actin FS) 32.2 Sodium 135 L Potassium 3.9 Chloride 97 L Carbon Dioxide 28 Anion Gap 10 BUN 23 H Creatinine 0.9 D Creat Clearance w eGFR > 60 Random Glucose 117 H D Lactic Acid Calcium 9.4 Phosphorus Magnesium Total Bilirubin 0.8 D AST 30 D ALT 29 D Alkaline Phosphatase 108 Creatine Kinase 77 Troponin I 0.07 H D Total Protein 7.3 Albumin 3.4 Lipase Blood Type Antibody Screen 11/25/17 11/25/17 11/25/17 15:20 15:35 16:47 WBC RBC Hgb Hct MCV MCH MCHC RDW Plt Count MPV Neutrophils % Lymphocytes % Monocytes % Eosinophils % Basophils % Retic Count PT with INR INR PTT (Actin FS) Sodium Potassium Chloride Carbon Dioxide Anion Gap BUN Creatinine Creat Clearance w eGFR Random Glucose Lactic Acid 1.6 Calcium Phosphorus Magnesium Total Bilirubin AST ALT Alkaline Phosphatase Creatine Kinase Troponin I Total Protein Albumin Lipase 76 Blood Type O POSITIVE Antibody Screen Negative 11/26/17 11/26/17 06:05 06:05 WBC 17.3 H RBC 4.50 Hgb 13.1 D Hct 39.3 MCV 87.3 MCH 29.1 MCHC 33.3 RDW 13.8 Plt Count 126 L MPV 10.2 Neutrophils % 77.4 Lymphocytes % 13.7 D Monocytes % 8.1 Eosinophils % 0.2 D Basophils % 0.6 Retic Count PT with INR INR PTT (Actin FS) Sodium 137 Potassium 3.9 Chloride 99 Carbon Dioxide 26 Anion Gap 12 BUN 24 H Creatinine 0.9 Creat Clearance w eGFR > 60 Random Glucose 99 Lactic Acid Calcium 8.7 Phosphorus 3.8 Magnesium 2.4 Total Bilirubin 0.8 AST 22 D ALT 20 D Alkaline Phosphatase 88 Creatine Kinase Troponin I Total Protein 6.2 L Albumin 3.0 L Lipase Blood Type Antibody Screen Active Medications Generic Name Dose Route Start Last Admin Trade Name Freq PRN Reason Stop Dose Admin Amlodipine Besylate 5 mg 11/26/17 10:00 Norvasc - PO DAILY KAVON Diphenhydramine HCl 25 mg 11/25/17 22:47 Benadryl Injection - IVPUSH DAILY PRN INSOMNIA Sodium Chloride 1,000 mls @ 42 mls/hr 11/25/17 22:15 11/25/17 23:01 Normal Saline - IV 42 mls/hr ASDIR KAVON Administration Metronidazole 500 mg in 100 mls @ 100 mls/hr 11/26/17 03:00 11/26/17 04:43 Flagyl 500mg Premixed Ivpb - IVPB 100 mls/hr Q6H-IV KAVON Administration Levofloxacin 750 mg in 150 mls @ 100 mls/hr 11/26/17 10:00 Levaquin 750 Mg Premixed Ivpb - IVPB DAILY KAVON Lisinopril 20 mg 11/26/17 10:00 Prinivil PO DAILY [facility] Morphine Sulfate 2 mg 11/25/17 22:10 Morphine Injection - IVPUSH Q4H PRN PAIN LEVEL 1-5 Non-Formulary Medication 10 mg 11/26/17 10:00 Dalfampridine [Ampyra] PO BID KAVON Pregabalin 100 mg 11/26/17 10:00 Lyrica - PO DAILY [facility] IMAGING: CT 11/25: The liver, spleen, pancreas, adrenal glands and kidneys demonstrate no significant abnormalities. There is a right hepatic calcification that may be indicative of prior granulomatous disease. There is marked thickening and irregularity of the distal transverse and proximal descending colon. This is consistent with focal colitis. The distal descending colon is more normal in appearance although there may be additional thickening of the sigmoid colon. There is no CT evidence of acute diverticulitis. Follow-up colonoscopy is recommended. There is is no evidence of pneumoperitoneum, bowel obstruction or intra-abdominal abscess. There is a umbilical hernia that does contain a portion of a small bowel loop. There is no evidence of obstruction related to the hernia. There is no evidence of intra-abdominal or retroperitoneal lymphadenopathy or fluid collections. Examination of the pelvis demonstrates no evidence of pelvic masses, fluid collections or lymphadenopathy. There is no evidence of acute bony pathology. IMPRESSION: Findings consistent with left- sided colitis, most marked within the distal transverse and proximal descending colon. Clinical correlation and follow-up recommended. CXR 11/25: There is no focal opacity to suggest pneumonia. No evidence of pulmonary vascular congestion or pleural effusion. There is no definable pneumothorax. Stable size of the cardiomediastinal silhouette since 06/29/2017 chest x-ray. No abnormal deviation of the trachea. ASSESSMENT/PLAN: 62 year old male with history diverticulitis s/p colonic resection, HTN, MS admitted for colitis. #Acute Colitis: -NPO until GI examines -continue levoquin/flagyl day 2 -follow cultures -continue fluid hydration at 42cc/hr -GI consult Dr. Blackmon appreciated #Hypertension: not in urgency anymore -f/u echo, ekg -continue lisinopril 20mg PO QD -continue amlodipine 5mg PO QD #Multiple sclerosis: not an acute condition -confirm home meds, Dalfampridine? -resume remainder of patient's home medications #FEN -IVF with NS @42 -Replete lytes in AM -NPO for now, may likely advance diet this afternoon #Prophylaxis -SCDs for now #Disposition -continue to monitor on telemetry Visit type - Emergency Visit Emergency Visit: No - New Patient This patient is new to me today: Yes Date on this admission: 11/26/17 - Critical Care Critical Care patient: No <Tara Hooper - Last Filed: 11/26/17 13:44> Physical Exam: Patient is comfortable with no acute distress, no fever or chills, feeling better than yesterday. Patient is improving, no fever, leukocytosis is improving continue IV antibiotic for acute colitis. Gi on the case. Vital Signs Temperature 98 F 11/26/17 09:00 Pulse Rate 78 11/26/17 09:00 Respiratory Rate 18 11/26/17 09:00 Blood Pressure 154/90 11/26/17 09:00 O2 Sat by Pulse Oximetry (%) 98 11/26/17 00:21 Current Medications Generic Name Dose Route Start Last Admin Trade Name Freq PRN Reason Stop Dose Admin Amlodipine Besylate 5 mg 11/26/17 10:00 11/26/17 09:51 Norvasc - PO 5 mg DAILY KAVON Administration Diphenhydramine HCl 25 mg 11/25/17 22:47 Benadryl Injection - IVPUSH DAILY PRN INSOMNIA Sodium Chloride 1,000 mls @ 42 mls/hr 11/25/17 22:15 11/25/17 23:01 Normal Saline - IV 42 mls/hr ASDIR KAVON Administration Metronidazole 500 mg in 100 mls @ 100 mls/hr 11/26/17 03:00 11/26/17 08:49 Flagyl 500mg Premixed Ivpb - IVPB 100 mls/hr Q6H-IV KAVON Administration Levofloxacin 750 mg in 150 mls @ 100 mls/hr 11/26/17 10:00 11/26/17 09:50 Levaquin 750 Mg Premixed Ivpb - IVPB 100 mls/hr DAILY KAVON Administration Lisinopril 20 mg 11/26/17 10:00 11/26/17 09:51 Prinivil PO 20 mg DAILY KAVON Administration Morphine Sulfate 2 mg 11/25/17 22:10 11/26/17 13:38 Morphine Injection - IVPUSH 2 mg Q4H PRN Administration PAIN LEVEL 1-5 Non-Formulary Medication 10 mg 11/26/17 10:00 Dalfampridine [Ampyra] PO BID KAVON Pregabalin 100 mg 11/26/17 10:00 11/26/17 09:51 Lyrica - PO 100 mg DAILY KAVON Administration Home Medications Medication Instructions Recorded Dextroamphetamine Sulfate 20 mg PO 5XD 06/29/17 [Dexedrine] Dalfampridine [Ampyra] 10 mg PO BID 11/25/17 Hydromorphone HCl [Exalgo] 8 mg PO HS 11/25/17 Hydromorphone HCl [Exalgo] 16 mg PO AM 11/25/17 Pregabalin [Lyrica] 200 mg PO TID 11/25/17 Cyclobenzaprine HCl [Flexeril 10 10 mg PO DAILY PRN 11/26/17 mg] Fluticasone Prop 0.05% Nasal 1 spray NS PRN 11/26/17 [Flonase -]
[2017-11-26] MEDS: amLODIPine BESYLATE 5 MG TABLET (FP) PO SCH (09:51)
[2017-11-26] MEDS: LISINOPRIL 20 MG TABLET (FP) PO SCH (09:51)
[2017-11-26] MEDS: PREGABALIN 100 MG CAPSULE PO SCH (09:51)
[2017-11-26] MEDS ORDERED: PATIENT'S OWN MEDICATION (NON-FORMULARY) (Dalfampridine [Ampyra] 10 MG) PO SCH (10:00)
--- NOTE | 2017-11-26 11:29 | CON.GI ---
Consult Consult Specialty:: gi Reason for Consultation:: hematochezia, colitis - History of Present Illness History of Present Illness: chart reviewed. Per initial intake: The patient is a 62 yo m w/ PMH HTN, diverticulitis d/p resection, multiple sclerosis who was brought in by his for decreased appetite, lethargy and BRBPR. Patient is a poor historian and the majority of the history was obtained by the wide at bedside. On Thursday night, the patient began to have a decreased appetite. Since then, the patient has had minimal PO intake and has been progressively lethargic. The patient has also had numerous trips to the bathroom and noticed bright red blood mixed in with his stool beginning yesterday evening. Patient is unsure of the frequency of his movements. Per patient's , he is at his baseline mentally and had had a decline in memory over the past year. Patient denies nausea, vomiting, constipation, sick contacts , recent travel, fevers or chills. The CT a/p significant for distal transverse-proximal descending, sigmoid colon colitis w/o evidence of diverticulitis. At the time of this encounter, the patient is not in distress, or discomfort. Doesn't remember his last colonoscopy, states "years" ago, or when he had partial colectomy for perforated diverticulosis, also "years" ago. Cannot provide details leading to his current admission. He currently reports no pain, nausea, or vomiting, or bleeding overnight. He has leukocytosis, had left shift on admission. His BUN is [address] - normal. - History Source History Provided By: Patient, Family Member, Medical Record, Caregiver - Alcohol/Substance Use Hx Alcohol Use: Yes (several drinks a week) - Smoking History Smoking history: Current every day smoker Have you smoked in the past 12 months: Yes Aproximately how many cigarettes per day: 15 Home Medications - Allergies Allergies/Adverse Reactions: Allergies Allergy/AdvReac Type Severity Reaction Status Date / Time celecoxib [From Celebrex] Allergy Intermediate Hives Verified 11/25/17 14:59 - Home Medications Home Medications: Ambulatory Orders Dextroamphetamine Sulfate [Dexedrine] 20 mg PO 5XD 06/29/17 Dalfampridine [Ampyra] 10 mg PO BID 11/25/17 Hydromorphone HCl [Exalgo] 8 mg PO HS 11/25/17 Hydromorphone HCl [Exalgo] 16 mg PO AM 11/25/17 Pregabalin [Lyrica] 200 mg PO TID 11/25/17 Cyclobenzaprine HCl [Flexeril 10 mg] 10 mg PO DAILY PRN 11/26/17 Fluticasone Prop 0.05% Nasal [Flonase -] 1 spray NS PRN 11/26/17 Family Disease History - Family Disease History Family History: Unremarkable Review of Systems Findings/Remarks: as per HPI, H&P Physical Exam-GI Vital Signs: Vital Signs Temperature 98 F 11/26/17 09:00 Pulse Rate 78 11/26/17 09:00 Respiratory Rate 18 11/26/17 09:00 Blood Pressure 154/90 11/26/17 09:00 O2 Sat by Pulse Oximetry (%) 98 11/26/17 00:21 Constitutional: Yes: Well Nourished, No Distress, Calm Eyes: Yes: Conjunctiva Clear HENT: Yes: Atraumatic Neck: Yes: Supple Cardiovascular: Yes: Regular Rate and Rhythm Respiratory: Yes: Regular Gastrointestinal Inspection: No: Ascites, Distention ...Auscultate: Yes: Normoactive Bowel Sounds ...Palpate: Yes: Soft, Splenomegaly. No: Firm/Rigid, Guarding, Tenderness, Tenderness, Epigastium, Tenderness, Rebound Neurological: Yes: Alert, Oriented Labs: CBC, BMP 11/26/17 06:05 11/26/17 06:05 INR, PTT INR 1.04 (0.82-1.09) 11/25/17 15:20 Laboratory Tests 11/25/17 11/25/17 11/25/17 15:20 15:20 15:20 WBC 18.5 H D RBC 5.13 Hgb 14.8 D Hct 44.6 MCV 86.8 MCH 28.9 MCHC 33.3 RDW 14.0 Plt Count 132 L D MPV 9.4 Neutrophils % 84.3 H D Lymphocytes % 8.3 D Monocytes % 7.2 Eosinophils % 0.0 D Basophils % 0.2 Retic Count 0.84 PT with INR 11.70 INR 1.04 PTT (Actin FS) 32.2 Sodium 135 L Potassium 3.9 Chloride 97 L Carbon Dioxide 28 Anion Gap 10 BUN 23 H Creatinine 0.9 D Creat Clearance w eGFR > 60 Random Glucose 117 H D Lactic Acid Calcium 9.4 Phosphorus Magnesium Total Bilirubin 0.8 D AST 30 D ALT 29 D Alkaline Phosphatase 108 Creatine Kinase 77 Troponin I 0.07 H D Total Protein 7.3 Albumin 3.4 Lipase Blood Type Antibody Screen 11/25/17 11/25/17 11/25/17 15:20 15:35 16:47 WBC RBC Hgb Hct MCV MCH MCHC RDW Plt Count MPV Neutrophils % Lymphocytes % Monocytes % Eosinophils % Basophils % Retic Count PT with INR INR PTT (Actin FS) Sodium Potassium Chloride Carbon Dioxide Anion Gap BUN Creatinine Creat Clearance w eGFR Random Glucose Lactic Acid 1.6 Calcium Phosphorus Magnesium Total Bilirubin AST ALT Alkaline Phosphatase Creatine Kinase Troponin I Total Protein Albumin Lipase 76 Blood Type O POSITIVE Antibody Screen Negative 11/26/17 11/26/17 06:05 06:05 WBC 17.3 H RBC 4.50 Hgb 13.1 D Hct 39.3 MCV 87.3 MCH 29.1 MCHC 33.3 RDW 13.8 Plt Count 126 L MPV 10.2 Neutrophils % 77.4 Lymphocytes % 13.7 D Monocytes % 8.1 Eosinophils % 0.2 D Basophils % 0.6 Retic Count PT with INR INR PTT (Actin FS) Sodium 137 Potassium 3.9 Chloride 99 Carbon Dioxide 26 Anion Gap 12 BUN 24 H Creatinine 0.9 Creat Clearance w eGFR > 60 Random Glucose 99 Lactic Acid Calcium 8.7 Phosphorus 3.8 Magnesium 2.4 Total Bilirubin 0.8 AST 22 D ALT 20 D Alkaline Phosphatase 88 Creatine Kinase Troponin I Total Protein 6.2 L Albumin 3.0 L Lipase Blood Type Antibody Screen Imaging - Results Cat Scan: Report Reviewed Problem List - Problems (1) Colitis Code(s): K52.9 - NONINFECTIVE GASTROENTERITIS AND COLITIS, UNSPECIFIED (2) Hematochezia Code(s): K92.1 - MELENA Assessment/Plan Suspect infectiouis vs ischemic colitis. Appears to respond to abx. Doesn't appear toxic, or in distress. Non-surgical abdomen on exam Agree with adequate hydration, abx. Full liquid diet as tolerated Daily CBC, CMP and close monitoring for bleeing, worsening abdominal pain Colonoscopy in 6 weeks, or on this admission if no response to treatment in 2-3 days.
--- NOTE | 2017-11-26 11:34 | EKG ---
Test Reason : Blood Pressure : / mmHG Vent. Rate : 075 BPM Atrial Rate : 075 BPM P-R Int : 148 ms QRS Dur : 096 ms QT Int : 400 ms P-R-T Axes : 061 066 072 degrees QTc Int : 446 ms NORMAL SINUS RHYTHM VOLTAGE CRITERIA FOR LEFT VENTRICULAR HYPERTROPHY ABNORMAL ECG WHEN COMPARED WITH ECG OF 25-NOV-2017 15:48, PREMATURE ATRIAL COMPLEXES ARE NO LONGER PRESENT Confirmed by VENESSA MARTINES, BENJA ([id number]) on 11/26/2017 11:34:02 AM Referred By: Confirmed By:BENJA CLIFFORD MD
--- NOTE | 2017-11-26 11:41 | EKG ---
Test Reason : Blood Pressure : / mmHG Vent. Rate : 080 BPM Atrial Rate : 080 BPM P-R Int : 132 ms QRS Dur : 094 ms QT Int : 388 ms P-R-T Axes : 047 073 078 degrees QTc Int : 447 ms SINUS RHYTHM WITH PREMATURE ATRIAL COMPLEXES MINIMAL VOLTAGE CRITERIA FOR LVH, MAY BE NORMAL VARIANT NONSPECIFIC T WAVE ABNORMALITY ABNORMAL ECG WHEN COMPARED WITH ECG OF 29-JUN-2017 17:08, PREMATURE ATRIAL COMPLEXES ARE NOW PRESENT Confirmed by BENJA CLIFFORD MD ([id number]) on 11/26/2017 11:41:30 AM Referred By: Confirmed By:BENJA CLIFFORD MD
[2017-11-26] MEDS: MORPHINE SULFATE 10 MG/1 ML *VIAL IVPUSH PRN ×2 (13:38→23:59)
[2017-11-27] MEDS: MORPHINE SULFATE 10 MG/1 ML *VIAL IVPUSH PRN ×2 (03:53→18:19)
[2017-11-27 07:15] LABS: HEMATOCRIT 38.7 % (35.4-49); HEMOGLOBIN 12.9 GM/dL (11.7-16.9); MCH 29.1 pg (25.7-33.7); MCHC 33.3 g/dl (32.0-35.9); MEAN CELL VOLUME 87.6 fl (80-96); MEAN PLT VOLUME 9.6 fl (7.5-11.1); PLATELET COUNT 148 K/MM3 (134-434); RBC 4.42 M/mm3 (4.00-5.60); RDW 13.4 % (11.9-15.9); WHITE BLOOD COUNT 13.6 K/mm3 (4.0-10.0)
[2017-11-27 08:14] LABS: CHLORIDE 101 mmol/L (98-107); POTASSIUM 4.1 mmol/L (3.5-5.1); SODIUM 139 mmol/L (136-145)
[2017-11-27 08:20] LABS: ANION GAP 11 (8-16); BLOOD UREA NITROGEN 17 mg/dL (7-18); CALCIUM 8.9 mg/dL (8.5-10.1); CO2 27 mmol/L (21-32); CREATININE 0.8 mg/dL (0.7-1.3); GLUCOSE,RANDOM 91 mg/dL (74-106)
--- NOTE | 2017-11-27 09:28 | PN ---
<Ford Echavarria - Last Filed: 11/27/17 09:35> Physical Exam: SUBJECTIVE: Patient seen and examined at bedside. Patient states he feels better than yesterday. Decreased abdominal pain. No bowel movements, no bleeding per rectum. No fevers, chills. OBJECTIVE: Vital Signs Period Temp Pulse Resp BP Sys/Saleem Pulse Ox Last 24 Hr 98 F-98.8 F 76-93 18-20 147-158/74-97 96 GEN: A&Ox3, no acute distress CV: RRR, systolic murmur noted in 2nd R intercostal space radiating to carotids Pulm: CTA Abd: Soft, nontender, BS present, nontender to palpation Ext: No edema, 2+ pulses bilaterally Neuro: CN intact, sluggish to respond to questions Laboratory Results - last 24 hr 11/27/17 11/27/17 06:48 06:48 WBC 13.6 H RBC 4.42 Hgb 12.9 Hct 38.7 MCV 87.6 MCH 29.1 MCHC 33.3 RDW 13.4 Plt Count 148 MPV 9.6 Sodium 139 Potassium 4.1 Chloride 101 Carbon Dioxide 27 Anion Gap 11 BUN 17 D Creatinine 0.8 Random Glucose 91 Calcium 8.9 Active Medications Generic Name Dose Route Start Last Admin Trade Name Freq PRN Reason Stop Dose Admin Amlodipine Besylate 5 mg 11/26/17 10:00 11/26/17 09:51 Norvasc - PO 5 mg DAILY KAVON Administration Diphenhydramine HCl 25 mg 11/25/17 22:47 11/26/17 21:03 Benadryl Injection - IVPUSH 25 mg DAILY PRN Administration INSOMNIA Sodium Chloride 1,000 mls @ 42 mls/hr 11/25/17 22:15 11/25/17 23:01 Normal Saline - IV 42 mls/hr ASDIR KAVON Administration Metronidazole 500 mg in 100 mls @ 100 mls/hr 11/26/17 03:00 11/27/17 04:01 Flagyl 500mg Premixed Ivpb - IVPB 100 mls/hr Q6H-IV KAVON Administration Levofloxacin 750 mg in 150 mls @ 100 mls/hr 11/26/17 10:00 11/26/17 09:50 Levaquin 750 Mg Premixed Ivpb - IVPB 100 mls/hr DAILY KAVON Administration Lisinopril 20 mg 11/26/17 10:00 11/26/17 09:51 Prinivil PO 20 mg DAILY KAVON Administration Morphine Sulfate 2 mg 11/25/17 22:10 11/27/17 03:53 Morphine Injection - IVPUSH 2 mg Q4H PRN Administration PAIN LEVEL 1-5 Non-Formulary Medication 10 mg 11/26/17 10:00 Dalfampridine [Ampyra] PO BID KAVON Pregabalin 100 mg 11/26/17 10:00 11/26/17 09:51 Lyrica - PO 100 mg DAILY KAVON Administration IMAGING: CT 11/25: The liver, spleen, pancreas, adrenal glands and kidneys demonstrate no significant abnormalities. There is a right hepatic calcification that may be indicative of prior granulomatous disease. There is marked thickening and irregularity of the distal transverse and proximal descending colon. This is consistent with focal colitis. The distal descending colon is more normal in appearance although there may be additional thickening of the sigmoid colon. There is no CT evidence of acute diverticulitis. Follow-up colonoscopy is recommended. There is is no evidence of pneumoperitoneum, bowel obstruction or intra-abdominal abscess. There is a umbilical hernia that does contain a portion of a small bowel loop. There is no evidence of obstruction related to the hernia. There is no evidence of intra-abdominal or retroperitoneal lymphadenopathy or fluid collections. Examination of the pelvis demonstrates no evidence of pelvic masses, fluid collections or lymphadenopathy. There is no evidence of acute bony pathology. IMPRESSION: Findings consistent with left- sided colitis, most marked within the distal transverse and proximal descending colon. Clinical correlation and follow-up recommended. CXR 11/25: There is no focal opacity to suggest pneumonia. No evidence of pulmonary vascular congestion or pleural effusion. There is no definable pneumothorax. Stable size of the cardiomediastinal silhouette since 06/29/2017 chest x-ray. No abnormal deviation of the trachea. ASSESSMENT/PLAN: 62 year old male with history diverticulitis s/p colonic resection, HTN, MS admitted for colitis. #Acute Colitis: -advance diet, full liquid diet -continue levoquin/flagyl day 3 -follow cultures -continue fluid hydration at 42cc/hr -GI consult Dr. Blackmon appreciated #Hypertension: not in urgency anymore -echo - increased RV systolic pressure 30-40mmHg, moderate LVH, mild aortic stenosis, mild aortic regurg -continue lisinopril 20mg PO QD -continue amlodipine 5mg PO QD #Multiple sclerosis: not an acute condition -confirm home meds, Dalfampridine? -resume remainder of patient's home medications #FEN -IVF with NS @42 -Replete lytes in AM -full liquid diet, low sodium #Prophylaxis -SCDs for now due to bleed #Disposition -continue to monitor on telemetry Visit type - Emergency Visit Emergency Visit: No - New Patient This patient is new to me today: No - Critical Care Critical Care patient: No <Tara Hooper - Last Filed: 11/27/17 17:55> Physical Exam: Patient continues to have pain, no fever or chills, day #3 of IV antibiotic on Levquin/Flagyl will contiue, will advance the diet. to full liquid diet. Vital Signs Temperature 98.5 F 11/27/17 13:53 Pulse Rate 99 H 11/27/17 13:53 Respiratory Rate 18 11/27/17 13:53 Blood Pressure 162/93 11/27/17 13:53 O2 Sat by Pulse Oximetry (%) 96 11/27/17 09:00 CBCD WBC 12.4 K/mm3 (4.0-10.0) H 11/27/17 15:10 RBC 4.51 M/mm3 (4.00-5.60) 11/27/17 15:10 Hgb 13.4 GM/dL (11.7-16.9) 11/27/17 15:10 Hct 39.8 % (35.4-49) 11/27/17 15:10 MCV 88.1 fl (80-96) 11/27/17 15:10 MCHC 33.7 g/dl (32.0-35.9) 11/27/17 15:10 RDW 13.5 % (11.9-15.9) 11/27/17 15:10 Plt Count 165 K/MM3 (134-434) 11/27/17 15:10 MPV 10.1 fl (7.5-11.1) 11/27/17 15:10 CMP Sodium 138 mmol/L (136-145) 11/27/17 15:10 Potassium 4.0 mmol/L (3.5-5.1) 11/27/17 15:10 Chloride 101 mmol/L (98-107) 11/27/17 15:10 Carbon Dioxide 29 mmol/L (21-32) 11/27/17 15:10 Anion Gap 8 (8-16) 11/27/17 15:10 BUN 15 mg/dL (7-18) 11/27/17 15:10 Creatinine 0.8 mg/dL (0.7-1.3) 11/27/17 15:10 Creat Clearance w eGFR > 60 (>60) 11/26/17 06:05 Random Glucose 91 mg/dL (74-106) 11/27/17 15:10 Calcium 8.3 mg/dL (8.5-10.1) L 11/27/17 15:10 Total Bilirubin 0.8 mg/dL (0.2-1.0) 11/26/17 06:05 AST 22 U/L (15-37) D 11/26/17 06:05 ALT 20 U/L (12-78) D 11/26/17 06:05 Alkaline Phosphatase 88 U/L (45-117) 11/26/17 06:05 Total Protein 6.2 g/dl (6.4-8.2) L 11/26/17 06:05 Albumin 3.0 g/dl (3.4-5.0) L 11/26/17 06:05 CARDIAC ENZYMES Creatine Kinase 77 IU/L (39-308) 11/25/17 15:20 Troponin I 0.07 ng/ml (0.00-0.05) H D 11/25/17 15:20 Current Medications Generic Name Dose Route Start Last Admin Trade Name Jermaineq PRN Reason Stop Dose Admin Amlodipine Besylate 5 mg 11/26/17 10:00 11/27/17 09:58 Norvasc - PO 5 mg DAILY KAVON Administration Diphenhydramine HCl 25 mg 11/27/17 22:00 Benadryl - PO HS PRN INSOMNIA Sodium Chloride 1,000 mls @ 42 mls/hr 11/25/17 22:15 11/25/17 23:01 Normal Saline - IV 42 mls/hr ASDIR KAVON Administration Metronidazole 500 mg in 100 mls @ 100 mls/hr 11/26/17 03:00 11/27/17 15:02 Flagyl 500mg Premixed Ivpb - IVPB 100 mls/hr Q6H-IV KAVON Administration Levofloxacin 750 mg in 150 mls @ 100 mls/hr 11/26/17 10:00 11/27/17 09:59 Levaquin 750 Mg Premixed Ivpb - IVPB 100 mls/hr DAILY KAVON Administration Lisinopril 20 mg 11/26/17 10:00 11/27/17 09:59 Prinivil PO 20 mg DAILY KAVON Administration Morphine Sulfate 2 mg 11/25/17 22:10 11/27/17 03:53 Morphine Injection - IVPUSH 2 mg Q4H PRN Administration PAIN LEVEL 1-5 Nicotine 21 mg 11/27/17 16:00 Nicoderm Patch - TD DAILY KAVON Non-Formulary Medication 10 mg 11/26/17 10:00 Dalfampridine [Ampyra] PO BID KAVON Pregabalin 100 mg 11/26/17 10:00 11/27/17 09:58 Lyrica - PO 100 mg DAILY KAVON Administration Home Medications Medication Instructions Recorded Dextroamphetamine Sulfate 20 mg PO 5XD 06/29/17 [Dexedrine] Dalfampridine [Ampyra] 10 mg PO BID 11/25/17 Hydromorphone HCl [Exalgo] 8 mg PO HS 11/25/17 Hydromorphone HCl [Exalgo] 16 mg PO AM 11/25/17 Pregabalin [Lyrica] 200 mg PO TID 11/25/17 Cyclobenzaprine HCl [Flexeril 10 10 mg PO DAILY PRN 11/26/17 mg] Fluticasone Prop 0.05% Nasal 1 spray NS PRN 11/26/17 [Flonase -] Amlodipine Besylate [Norvasc -] 5 mg PO DAILY #30 tablet 11/27/17 Lisinopril [Prinivil] 20 mg PO DAILY #30 tablet 11/27/17 CRP is 6.3 today , will repeat in am. Stool culture is pending. GI on the case.
[2017-11-27] MEDS: amLODIPine BESYLATE 5 MG TABLET (FP) PO SCH (09:58)
[2017-11-27] MEDS: PREGABALIN 100 MG CAPSULE PO SCH (09:58)
[2017-11-27] MEDS: LISINOPRIL 20 MG TABLET (FP) PO SCH (09:59)
[2017-11-27 16:17] LABS: HEMATOCRIT 39.8 % (35.4-49); HEMOGLOBIN 13.4 GM/dL (11.7-16.9); MCH 29.7 pg (25.7-33.7); MCHC 33.7 g/dl (32.0-35.9); MEAN CELL VOLUME 88.1 fl (80-96); MEAN PLT VOLUME 10.1 fl (7.5-11.1); PLATELET COUNT 165 K/MM3 (134-434); RBC 4.51 M/mm3 (4.00-5.60); RDW 13.5 % (11.9-15.9); WHITE BLOOD COUNT 12.4 K/mm3 (4.0-10.0)
[2017-11-27 16:37] LABS: ANION GAP 8 (8-16); BLOOD UREA NITROGEN 15 mg/dL (7-18); CALCIUM 8.3 mg/dL (8.5-10.1); CHLORIDE 101 mmol/L (98-107); CO2 29 mmol/L (21-32); CREATININE 0.8 mg/dL (0.7-1.3); GLUCOSE,RANDOM 91 mg/dL (74-106); SODIUM 138 mmol/L (136-145)
[2017-11-27] MEDS: SODIUM CHLORIDE 1,000 ML IV SCH (17:13)
[2017-11-27] MEDS ORDERED: amLODIPine BESYLATE 5 MG TABLET (FP) PO ONE (17:56)
[2017-11-27] MEDS: NICOTINE 21 MG/24 HOURS TOPICAL PATCH TD SCH (18:13)
[2017-11-27] MEDS: diphenhydrAMINE HCL 25 MG CAPSULE (FP) PO PRN (22:11)
[2017-11-28] MEDS: PREGABALIN 100 MG CAPSULE PO SCH (09:00)
[2017-11-28] MEDS: amLODIPine BESYLATE 5 MG TABLET (FP) PO SCH (09:00)
[2017-11-28] MEDS: NICOTINE 21 MG/24 HOURS TOPICAL PATCH TD SCH (09:01)
[2017-11-28] MEDS: MORPHINE SULFATE 10 MG/1 ML *VIAL IVPUSH PRN (09:01)
[2017-11-28] MEDS: LISINOPRIL 20 MG TABLET (FP) PO SCH (09:01)
--- NOTE | 2017-11-28 14:30 | PN ---
Progress Note (short form) - Note Progress Note: Patient had diarrhea 3x today as per patient he feels he is doing better. Vital Signs Temperature 98.2 F 11/28/17 08:56 Pulse Rate 86 11/28/17 08:56 Respiratory Rate 14 11/28/17 09:00 Blood Pressure 182/92 11/28/17 08:56 O2 Sat by Pulse Oximetry (%) 96 11/28/17 09:00 GEN: A&Ox3, no acute distress CVS: RRR, systolic murmur noted in 2nd R intercostal space radiating to carotids Pulm: CTA Abd: Soft, nontender, BS present, mild tenderness in b/l lower quadrants. Ext: No edema, 2+ pulses bilaterally Neuro: CN grossly intact. CBCD WBC 12.4 K/mm3 (4.0-10.0) H 11/27/17 15:10 RBC 4.51 M/mm3 (4.00-5.60) 11/27/17 15:10 Hgb 13.4 GM/dL (11.7-16.9) 11/27/17 15:10 Hct 39.8 % (35.4-49) 11/27/17 15:10 MCV 88.1 fl (80-96) 11/27/17 15:10 MCHC 33.7 g/dl (32.0-35.9) 11/27/17 15:10 RDW 13.5 % (11.9-15.9) 11/27/17 15:10 Plt Count 165 K/MM3 (134-434) 11/27/17 15:10 MPV 10.1 fl (7.5-11.1) 11/27/17 15:10 CMP Sodium 138 mmol/L (136-145) 11/27/17 15:10 Potassium 4.0 mmol/L (3.5-5.1) 11/27/17 15:10 Chloride 101 mmol/L (98-107) 11/27/17 15:10 Carbon Dioxide 29 mmol/L (21-32) 11/27/17 15:10 Anion Gap 8 (8-16) 11/27/17 15:10 BUN 15 mg/dL (7-18) 11/27/17 15:10 Creatinine 0.8 mg/dL (0.7-1.3) 11/27/17 15:10 Creat Clearance w eGFR > 60 (>60) 11/26/17 06:05 Random Glucose 91 mg/dL (74-106) 11/27/17 15:10 Calcium 8.3 mg/dL (8.5-10.1) L 11/27/17 15:10 Total Bilirubin 0.8 mg/dL (0.2-1.0) 11/26/17 06:05 AST 22 U/L (15-37) D 11/26/17 06:05 ALT 20 U/L (12-78) D 11/26/17 06:05 Alkaline Phosphatase 88 U/L (45-117) 11/26/17 06:05 Total Protein 6.2 g/dl (6.4-8.2) L 11/26/17 06:05 Albumin 3.0 g/dl (3.4-5.0) L 11/26/17 06:05 CARDIAC ENZYMES Creatine Kinase 77 IU/L (39-308) 11/25/17 15:20 Troponin I 0.07 ng/ml (0.00-0.05) H D 11/25/17 15:20 Current Medications Generic Name Dose Route Start Last Admin Trade Name Freq PRN Reason Stop Dose Admin Amlodipine Besylate 5 mg 11/26/17 10:00 11/28/17 09:00 Norvasc - PO 5 mg DAILY KAVON Administration Diphenhydramine HCl 25 mg 11/27/17 22:00 11/27/17 22:11 Benadryl - PO 25 mg HS PRN Administration INSOMNIA Sodium Chloride 1,000 mls @ 42 mls/hr 11/25/17 22:15 11/27/17 17:13 Normal Saline - IV 42 mls/hr ASDIR KAVON Administration Levofloxacin 750 mg in 150 mls @ 100 mls/hr 11/26/17 10:00 11/28/17 09:00 Levaquin 750 Mg Premixed Ivpb - IVPB 100 mls/hr DAILY KAVON Administration Lisinopril 20 mg 11/26/17 10:00 11/28/17 09:01 Prinivil PO 20 mg DAILY KAVON Administration Metronidazole 500 mg 11/28/17 22:00 Flagyl - PO TID KAVON Nicotine 21 mg 11/27/17 16:00 11/28/17 09:01 Nicoderm Patch - TD 21 mg DAILY KAVON Administration Pregabalin 100 mg 11/26/17 10:00 11/28/17 09:00 Lyrica - PO 100 mg DAILY KAVON Administration Home Medications Medication Instructions Recorded Dextroamphetamine Sulfate 20 mg PO 5XD 06/29/17 [Dexedrine] Dalfampridine [Ampyra] 10 mg PO BID 11/25/17 Hydromorphone HCl [Exalgo] 8 mg PO HS 11/25/17 Hydromorphone HCl [Exalgo] 16 mg PO AM 11/25/17 Pregabalin [Lyrica] 200 mg PO TID 11/25/17 Cyclobenzaprine HCl [Flexeril 10 10 mg PO DAILY PRN 11/26/17 mg] Fluticasone Prop 0.05% Nasal 1 spray NS PRN 11/26/17 [Flonase -] Amlodipine Besylate [Norvasc -] 5 mg PO DAILY #30 tablet 11/27/17 Lisinopril [Prinivil] 20 mg PO DAILY #30 tablet 11/27/17 IMAGING: CT 11/25: The liver, spleen, pancreas, adrenal glands and kidneys demonstrate no significant abnormalities. There is a right hepatic calcification that may be indicative of prior granulomatous disease. There is marked thickening and irregularity of the distal transverse and proximal descending colon. This is consistent with focal colitis. The distal descending colon is more normal in appearance although there may be additional thickening of the sigmoid colon. There is no CT evidence of acute diverticulitis. Follow-up colonoscopy is recommended. There is is no evidence of pneumoperitoneum, bowel obstruction or intra-abdominal abscess. There is a umbilical hernia that does contain a portion of a small bowel loop. There is no evidence of obstruction related to the hernia. There is no evidence of intra-abdominal or retroperitoneal lymphadenopathy or fluid collections. Examination of the pelvis demonstrates no evidence of pelvic masses, fluid collections or lymphadenopathy. There is no evidence of acute bony pathology. IMPRESSION: Findings consistent with left- sided colitis, most marked within the distal transverse and proximal descending colon. Clinical correlation and follow-up recommended. CXR 11/25: There is no focal opacity to suggest pneumonia. No evidence of pulmonary vascular congestion or pleural effusion. There is no definable pneumothorax. Stable size of the cardiomediastinal silhouette since 06/29/2017 chest x-ray. No abnormal deviation of the trachea. ASSESSMENT/PLAN: Patient is a 62 year old male with history diverticulitis s/p colonic resection , HTN, MS admitted for acute colitis. #Acute Colitis: on IV antibiotic LevaQIn day 4 , will continue with Levaquin and IV flagyl with po vancomycin since c-DIFF ANTIGEN POSITVE, AND TOXIN IS NEGATIVE. full liquid diet CONTINUE, Repeat CRP adali am, 6.3 today , continue to follow cultures, continue IVF at 42cc/hr, GI consult Dr. Blackmon appreciated #Hypertension: continue home meds.echo - increased RV systolic pressure 30- 40mmHg, moderate LVH, mild aortic stenosis, mild aortic regurg lisinopril 20mg PO QD and continue amlodipine 5mg PO QD #Multiple sclerosis: stable full liquid diet, low sodium, IVF DVT Prophylaxis: SCDs for now due to bleed contact isolation for cdiff antigen. Visit type - Emergency Visit Emergency Visit: Yes ED Registration Date: 11/25/17 Care time: The patient presented to the Emergency Department on the above date and was hospitalized for further evaluation of their emergent condition. - New Patient This patient is new to me today: Yes Date on this admission: 11/28/17 - Critical Care Critical Care patient: No - Discharge Referral Referred to [facility] No
--- NOTE | 2017-11-28 17:20 | PN ---
Progress Note, Physician History of Present Illness: chart reviewed. stool positive for c. diff antigen only. Lose stools. Very hungry - Current Medication List Current Medications: Active Medications Amlodipine Besylate (Norvasc -) 5 mg PO DAILY [facility] Last Admin: 11/28/17 09:00 Dose: 5 mg Diphenhydramine HCl (Benadryl -) 25 mg PO HS PRN PRN Reason: INSOMNIA Last Admin: 11/27/17 22:11 Dose: 25 mg Sodium Chloride (Normal Saline -) 1,000 mls @ 42 mls/hr IV ASDIR [facility] Last Admin: 11/27/17 17:13 Dose: 42 mls/hr Levofloxacin (Levaquin 750 Mg Premixed Ivpb -) 750 mg in 150 mls @ 100 mls/hr IVPB DAILY [facility] Last Admin: 11/28/17 09:00 Dose: 100 mls/hr Metronidazole (Flagyl 500mg Premixed Ivpb -) 500 mg in 100 mls @ 100 mls/hr IVPB Q8H-IV [facility] Lactobacillus Acidophilus (Bacid -) 1 tab PO BID [facility] Lisinopril (Prinivil) 20 mg PO DAILY [facility] Last Admin: 11/28/17 09:01 Dose: 20 mg Nicotine (Nicoderm Patch -) 21 mg TD DAILY [facility] Last Admin: 11/28/17 09:01 Dose: 21 mg Pregabalin (Lyrica -) 100 mg PO DAILY [facility] Last Admin: 11/28/17 09:00 Dose: 100 mg Vancomycin HCl (Vancomycin Oral Solution) 125 mg PO Q6HPO [facility] - Objective Vital Signs: Vital Signs Temperature 98.4 F 11/28/17 14:00 Pulse Rate 96 H 11/28/17 14:00 Respiratory Rate 14 11/28/17 09:00 Blood Pressure 147/86 11/28/17 14:00 O2 Sat by Pulse Oximetry (%) 96 11/28/17 09:00 Constitutional: Yes: Well Nourished, No Distress, Calm Eyes: Yes: Conjunctiva Clear HENT: Yes: Atraumatic Neck: Yes: Supple Gastrointestinal: Yes: Soft. No: Rectal Bleeding, Tenderness, Tenderness, Epigastrium, Vomiting Neurological: Yes: Alert, Oriented Labs: CBC, BMP 11/27/17 15:10 11/27/17 15:10 INR, PTT INR 1.04 (0.82-1.09) 11/25/17 15:20 CBCD WBC 12.4 K/mm3 (4.0-10.0) H 11/27/17 15:10 RBC 4.51 M/mm3 (4.00-5.60) 11/27/17 15:10 Hgb 13.4 GM/dL (11.7-16.9) 11/27/17 15:10 Hct 39.8 % (35.4-49) 11/27/17 15:10 MCV 88.1 fl (80-96) 11/27/17 15:10 MCHC 33.7 g/dl (32.0-35.9) 11/27/17 15:10 RDW 13.5 % (11.9-15.9) 11/27/17 15:10 Plt Count 165 K/MM3 (134-434) 11/27/17 15:10 MPV 10.1 fl (7.5-11.1) 11/27/17 15:10 CMP Sodium 138 mmol/L (136-145) 11/27/17 15:10 Potassium 4.0 mmol/L (3.5-5.1) 11/27/17 15:10 Chloride 101 mmol/L (98-107) 11/27/17 15:10 Carbon Dioxide 29 mmol/L (21-32) 11/27/17 15:10 Anion Gap 8 (8-16) 11/27/17 15:10 BUN 15 mg/dL (7-18) 11/27/17 15:10 Creatinine 0.8 mg/dL (0.7-1.3) 11/27/17 15:10 Creat Clearance w eGFR > 60 (>60) 11/26/17 06:05 Calcium 8.3 mg/dL (8.5-10.1) L 11/27/17 15:10 Total Bilirubin 0.8 mg/dL (0.2-1.0) 11/26/17 06:05 AST 22 U/L (15-37) D 11/26/17 06:05 ALT 20 U/L (12-78) D 11/26/17 06:05 Alkaline Phosphatase 88 U/L (45-117) 11/26/17 06:05 Total Protein 6.2 g/dl (6.4-8.2) L 11/26/17 06:05 Albumin 3.0 g/dl (3.4-5.0) L 11/26/17 06:05 Problem List - Problems (1) Colitis Code(s): K52.9 - NONINFECTIVE GASTROENTERITIS AND COLITIS, UNSPECIFIED (2) Hematochezia Code(s): K92.1 - MELENA (3) Diarrhea Code(s): R19.7 - DIARRHEA, UNSPECIFIED Assessment/Plan Doubt c.diff colitis however antigen pos and the pt is in isolation. Non-toxic appearance. WBC improving Continue current care (diet, abx, hydration) consider cholestyramine Colonoscopy in 6 weeks as discussed with the blas and his today.
[2017-11-28] MEDS ORDERED: oxyCODONE HCL 5 MG TABLET PO PRN (18:04)
[2017-11-28] MEDS: VANCOMYCIN 250 MG/5 ML ORAL SOLUTION PO SCH ×2 (18:32→23:06)
[2017-11-28] MEDS ORDERED: metroNIDAZOLE 250 MG TABLET PO SCH (22:00)
[2017-11-28] MEDS: diphenhydrAMINE HCL 25 MG CAPSULE (FP) PO PRN (22:54)
[2017-11-28] MEDS: CHOLESTYRAMINE/SUCROSE 4 GM PACKET PO SCH ×2 (22:54→23:05)
[2017-11-28] MEDS: LACTOBACILLUS ACIDOPHILUS 1 EACH TAB (FP) PO SCH (22:54)
[2017-11-29] MEDS: VANCOMYCIN 250 MG/5 ML ORAL SOLUTION PO SCH ×3 (05:43→17:56)
[2017-11-29 08:07] LABS: BASO % 0.8 % (0-2.0); EOS % 1.4 % (0-4.5); HEMATOCRIT 40.8 % (35.4-49); HEMOGLOBIN 13.7 GM/dL (11.7-16.9); MCH 29.2 pg (25.7-33.7); MCHC 33.5 g/dl (32.0-35.9); MEAN CELL VOLUME 87.1 fl (80-96); MEAN PLT VOLUME 10.1 fl (7.5-11.1); MONO % 12.7 % (3.8-10.2); NEUT % 58.1 % (42.8-82.8); PLATELET COUNT 232 K/MM3 (134-434); RBC 4.68 M/mm3 (4.00-5.60); RDW 13.7 % (11.9-15.9)
--- NOTE | 2017-11-29 09:55 | PN ---
Physical Exam: SUBJECTIVE: Patient seen and examined at bedside. patient is tolerating soft diet. Patient denies current pain in his abdomen. States that he had produced a small amount of soft stool when urinating earlier without blood. Patient is being treated for positive c-diff. OBJECTIVE: Vital Signs Period Temp Pulse Resp BP Sys/Saleem Pulse Ox Last 24 Hr 98.3 F-98.9 F 85-97 18-20 146-165/86-97 97 GEN: A&Ox3, no acute distress CV: RRR, systolic murmur noted in 2nd R intercostal space radiating to carotids Pulm: CTA Abd: Soft, nontender, BS present, nontender to palpation Ext: No edema, 2+ pulses bilaterally Neuro: CN intact Laboratory Results - last 24 hr 11/29/17 11/29/17 06:00 06:00 WBC 11.0 H RBC 4.68 Hgb 13.7 Hct 40.8 MCV 87.1 MCH 29.2 MCHC 33.5 RDW 13.7 Plt Count 232 D MPV 10.1 Neutrophils % 58.1 D Lymphocytes % 27.0 D Monocytes % 12.7 H Eosinophils % 1.4 D Basophils % 0.8 C-Reactive Protein 2.7 H Active Medications Generic Name Dose Route Start Last Admin Trade Name Freq PRN Reason Stop Dose Admin Amlodipine Besylate 5 mg 11/26/17 10:00 11/28/17 09:00 Norvasc - PO 5 mg DAILY [facility] Administration Cholestyramine Resin 4 gm 11/28/17 22:00 11/28/17 23:05 Questran Packet - PO Not Given BID [facility] Diphenhydramine HCl 25 mg 11/27/17 22:00 11/28/17 22:54 Benadryl - PO 25 mg HS PRN Administration INSOMNIA Sodium Chloride 1,000 mls @ 42 mls/hr 11/25/17 22:15 11/27/17 17:13 Normal Saline - IV 42 mls/hr ASDIR [facility] Administration Levofloxacin 750 mg in 150 mls @ 100 mls/hr 11/26/17 10:00 11/28/17 09:00 Levaquin 750 Mg Premixed Ivpb - IVPB 100 mls/hr DAILY [facility] Administration Metronidazole 500 mg in 100 mls @ 100 mls/hr 11/28/17 18:00 11/29/17 02:11 Flagyl 500mg Premixed Ivpb - IVPB 100 mls/hr Q8H-IV [facility] Administration Lactobacillus Acidophilus 1 tab 11/28/17 22:00 11/28/17 22:54 Bacid - PO 1 tab BID [facility] Administration Lisinopril 20 mg 11/26/17 10:00 11/28/17 09:01 Prinivil PO 20 mg DAILY [facility] Administration Nicotine 21 mg 11/27/17 16:00 11/28/17 09:01 Nicoderm Patch - TD 21 mg DAILY [facility] Administration Oxycodone HCl 5 mg 11/28/17 18:04 11/28/17 18:31 Roxicodone - PO 5 mg Q8H PRN Administration PAIN LEVEL 4 - 6 Pregabalin 100 mg 11/26/17 10:00 11/28/17 09:00 Lyrica - PO 100 mg DAILY [facility] Administration Vancomycin HCl 125 mg 11/28/17 18:00 11/29/17 05:43 Vancomycin Oral Solution PO 125 mg Q6HPO [facility] Administration IMAGING: CT 11/25: The liver, spleen, pancreas, adrenal glands and kidneys demonstrate no significant abnormalities. There is a right hepatic calcification that may be indicative of prior granulomatous disease. There is marked thickening and irregularity of the distal transverse and proximal descending colon. This is consistent with focal colitis. The distal descending colon is more normal in appearance although there may be additional thickening of the sigmoid colon. There is no CT evidence of acute diverticulitis. Follow-up colonoscopy is recommended. There is is no evidence of pneumoperitoneum, bowel obstruction or intra-abdominal abscess. There is a umbilical hernia that does contain a portion of a small bowel loop. There is no evidence of obstruction related to the hernia. There is no evidence of intra-abdominal or retroperitoneal lymphadenopathy or fluid collections. Examination of the pelvis demonstrates no evidence of pelvic masses, fluid collections or lymphadenopathy. There is no evidence of acute bony pathology. IMPRESSION: Findings consistent with left- sided colitis, most marked within the distal transverse and proximal descending colon. Clinical correlation and follow-up recommended. CXR 11/25: There is no focal opacity to suggest pneumonia. No evidence of pulmonary vascular congestion or pleural effusion. There is no definable pneumothorax. Stable size of the cardiomediastinal silhouette since 06/29/2017 chest x-ray. No abnormal deviation of the trachea. ASSESSMENT/PLAN: 62 year old male with history diverticulitis s/p colonic resection, HTN, MS admitted for colitis. #Acute Colitis: resolving, now with (+) C. diff antigen -tolerating full liquid diet -continue levoquin/flagyl day 5 -oral vancomycin -continue fluid hydration at 42cc/hr -GI consult Dr. Blackmon appreciated #Hypertension: not in urgency anymore -echo - increased RV systolic pressure 30-40mmHg, moderate LVH, mild aortic stenosis, mild aortic regurg -continue lisinopril 20mg PO QD -continue amlodipine 5mg PO QD #Multiple sclerosis: not an acute condition -confirm home meds, Dalfampridine? -resume remainder of patient's home medications #FEN -IVF with NS @42 -Replete lytes in AM -full liquid diet, low sodium #Prophylaxis -SCDs for now due to bleed #Disposition -continue to monitor on telemetry Visit type - Emergency Visit Emergency Visit: No - New Patient This patient is new to me today: No - Critical Care Critical Care patient: No
[2017-11-29] MEDS: LACTOBACILLUS ACIDOPHILUS 1 EACH TAB (FP) PO SCH (10:20)
[2017-11-29] MEDS: amLODIPine BESYLATE 5 MG TABLET (FP) PO SCH (10:20)
[2017-11-29] MEDS: NICOTINE 21 MG/24 HOURS TOPICAL PATCH TD SCH (10:20)
[2017-11-29] MEDS: PREGABALIN 100 MG CAPSULE PO SCH (10:20)
[2017-11-29] MEDS: CHOLESTYRAMINE/SUCROSE 4 GM PACKET PO SCH (10:21)
[2017-11-29] MEDS: LISINOPRIL 20 MG TABLET (FP) PO SCH (10:21)
--- NOTE | 2017-11-29 16:13 | DS ---
Physical Exam: SUBJECTIVE: Patient seen and examined at bedside. patient is tolerating soft diet. Patient denies current pain in his abdomen. States that he had produced a small amount of soft stool when urinating earlier without blood. Patient is being treated for positive c-diff. OBJECTIVE: Vital Signs Period Temp Pulse Resp BP Sys/Saleem Pulse Ox Last 24 Hr 98.3 F-98.9 F 76-97 18-20 146-165/83-97 97-98 PHYSICAL EXAM GEN: A&Ox3, no acute distress CV: RRR, systolic murmur noted in 2nd R intercostal space radiating to carotids Pulm: CTA Abd: Soft, nontender, BS present, nontender to palpation Ext: No edema, 2+ pulses bilaterally Neuro: CN intact LABS Laboratory Results - last 24 hr 11/29/17 11/29/17 06:00 06:00 WBC 11.0 H RBC 4.68 Hgb 13.7 Hct 40.8 MCV 87.1 MCH 29.2 MCHC 33.5 RDW 13.7 Plt Count 232 D MPV 10.1 Neutrophils % 58.1 D Lymphocytes % 27.0 D Monocytes % 12.7 H Eosinophils % 1.4 D Basophils % 0.8 C-Reactive Protein 2.7 H HOSPITAL COURSE: Date of Admission:11/25/17 The patient is a 62 yo m w/ PMH HTN, diverticulitis d/p resection, multiple sclerosis who was brought in by his for decreased appetite, lethargy and BRBPR. Patient is a poor historian and the majority of the history was obtained by the wide at bedside. On thursday night, the patient began to have a decreased appetite. since then, the patient has had minimal PO intake and has been progressively lethargic. The patient has also had numerous trips to the bathroom and noticed bright red blood mixed in with his stool beginning this evening. Patient is unsure of the frequency of his movements. Per patient's , he is at his baseline mentally and had had a decline in memory over the past year. Patient denies nausea, vomiting, constipation, sick contacts, recent travel, fevers or chills. ER course was notable for: (1) CT abdomen/Pelvis showing left sided colitis in the distal transverse and proximal descending colon (2) troponin .07, WBC 18.5 (3) BP 178/102 Recent Travel: none PAST MEDICAL HISTORY: HTN, MS, ADHD, diverticulitis PAST SURGICAL HISTORY: Colonic resection appendectomy total knee replacement ACL repairs Jaw surgery for fracture Social History: Smoking: smokes 18 cigs daily for 40 years Alcohol: 1-2 shots of whisky daily Drugs: smokes marijuana occasionally Family History: non-contributory Allergies celecoxib [From Celebrex] Allergy (Intermediate, Verified 11/25/17 14:59) Hives HOME MEDICATIONS: Home Medications Medication Instructions Recorded Dextroamphetamine Sulfate 15 mg PO DAILY 06/29/17 [Dexedrine] Dalfampridine [Ampyra] 10 mg PO BID 11/25/17 Hydromorphone HCl [Exalgo] 8 mg PO HS 11/25/17 Hydromorphone HCl [Exalgo] 16 mg PO AM 11/25/17 Pregabalin [Lyrica] 100 mg PO DAILY 11/25/17 REVIEW OF SYSTEMS CONSTITUTIONAL: Absent: fever, chills, diaphoresis, generalized weakness, malaise, loss of appetite, weight change HEENT: Absent: rhinorrhea, nasal congestion, throat pain, throat swelling, difficulty swallowing, mouth swelling, ear pain, eye pain, visual changes CARDIOVASCULAR: Absent: chest pain, syncope, palpitations, irregular heart rate, lightheadedness , peripheral edema RESPIRATORY: Absent: cough, shortness of breath, dyspnea with exertion, orthopnea, wheezing, stridor, hemoptysis GASTROINTESTINAL: Absent: abdominal distension, nausea, vomiting, constipation. GENITOURINARY: Absent: dysuria, frequency, urgency, hesitancy, hematuria, flank pain, genital pain MUSCULOSKELETAL: Absent: myalgia, arthralgia, joint swelling, back pain, neck pain SKIN: Absent: rash, itching, pallor HEMATOLOGIC/IMMUNOLOGIC: Absent: easy bleeding, easy bruising, lymphadenopathy, frequent infections ENDOCRINE: Absent: unexplained weight gain, unexplained weight loss, heat intolerance, cold intolerance NEUROLOGIC: Absent: headache, focal weakness or paresthesias, dizziness, unsteady gait, seizure, mental status changes, bladder or bowel incontinence PSYCHIATRIC: Absent: anxiety, depression, suicidal or homicidal ideation, hallucinations. PHYSICAL EXAMINATION Vital Signs - 24 hr 11/25/17 11/25/17 11/25/17 14:59 16:11 16:52 Temperature 98.1 F Pulse Rate 94 H Pulse Rate [ 79 94 H Apical] Respiratory 18 16 16 Rate Blood Pressure 178/118 Blood Pressure 214/119 184/107 [Left Arm] Blood Pressure 197/124 [Right Arm] O2 Sat by Pulse 99 100 Oximetry (%) 11/25/17 11/25/17 11/25/17 17:18 19:01 19:40 Temperature Pulse Rate Pulse Rate [ 82 82 115 H Apical] Respiratory 16 16 22 Rate Blood Pressure Blood Pressure [Left Arm] Blood Pressure 184/111 188/103 178/102 [Right Arm] O2 Sat by Pulse 100 100 98 Oximetry (%) GENERAL: Awake, alert, and fully oriented, in no acute distress. Patient taking longer to respond to questions and cannot remember much of his history. HEAD: Normal with no signs of trauma. EYES: Pupils equal, round and reactive to light, extraocular movements intact, sclera anicteric, conjunctiva clear. No lid lag. EARS, NOSE, THROAT: Ears normal, nares patent, oropharynx clear without exudates. Dry mucous membranes. NECK: Normal range of motion, supple without lymphadenopathy, JVD, or masses. LUNGS: Breath sounds equal, clear to auscultation bilaterally. No wheezes, and no crackles. No accessory muscle use. HEART: Regular rate and rhythm, normal S1 and S2 without murmur, rub or gallop. ABDOMEN: Soft, not distended, normoactive bowel sounds, diffuse tenderness to palpation with mild guarding, no rebound, no masses. No hepatomegaly or splenomegaly. Rectal exam: no masses felt, no external hemorrhoids, brown stool seen. LOWER EXTREMITIES: 2+ pulses, warm, well-perfused. No calf tenderness. No peripheral edema. NEUROLOGICAL: Cranial nerves II-X intact. Normal speech. PSYCHIATRIC: Cooperative. Good eye contact. Appropriate mood and affect. SKIN: Warm, dry, normal turgor, no rashes or lesions noted, normal capillary refill. Laboratory Results - last 24 hr 11/25/17 11/25/17 11/25/17 15:20 15:20 15:20 WBC 18.5 H D RBC 5.13 Hgb 14.8 D Hct 44.6 MCV 86.8 MCH 28.9 MCHC 33.3 RDW 14.0 Plt Count 132 L D MPV 9.4 Neutrophils % 84.3 H D Lymphocytes % 8.3 D Monocytes % 7.2 Eosinophils % 0.0 D Basophils % 0.2 Retic Count 0.84 PT with INR 11.70 INR 1.04 PTT (Actin FS) 32.2 Sodium 135 L Potassium 3.9 Chloride 97 L Carbon Dioxide 28 Anion Gap 10 BUN 23 H Creatinine 0.9 D Creat Clearance w eGFR > 60 Random Glucose 117 H D Lactic Acid Calcium 9.4 Total Bilirubin 0.8 D AST 30 D ALT 29 D Alkaline Phosphatase 108 Creatine Kinase 77 Troponin I 0.07 H D Total Protein 7.3 Albumin 3.4 Lipase Blood Type Antibody Screen 11/25/17 11/25/17 11/25/17 15:20 15:35 16:47 WBC RBC Hgb Hct MCV MCH MCHC RDW Plt Count MPV Neutrophils % Lymphocytes % Monocytes % Eosinophils % Basophils % Retic Count PT with INR INR PTT (Actin FS) Sodium Potassium Chloride Carbon Dioxide Anion Gap BUN Creatinine Creat Clearance w eGFR Random Glucose Lactic Acid 1.6 Calcium Total Bilirubin AST ALT Alkaline Phosphatase Creatine Kinase Troponin I Total Protein Albumin Lipase 76 Blood Type O POSITIVE Antibody Screen Negative IMAGING: CT Abd/Pelvis: Findings consistent with left-sided colitis, most marked within the distal transverse and proximal descending colon. Clinical correlation and follow-up recommended. Please see above discussion. The patient is a 62 year with past medical history of colitis, HTN, MS brought to the hospital for abdominal pain and bright red blood per rectum. Patient had CT abd/pelvis consistent with colitis. Patient was kept NPO and given levoquin/ flagyl for coverage. Stool culture, leukocytes, and c diff was sent for analysis. Patient was hypertensive and thus given labetalol 20mg IV. Patient returned positive for c. diff and was started on oral vancomycin. He was improving and patient was advanced to clear liquid diet. He remained afebrile and his diet was advanced full liquid diet. Once tolerated, patient was discharged with instructions to follow with his PCP, GI Dr. Blackmon for colonoscopy, and to finish antibiotics for 7 days (levoquin, flagyl, and vancomycin). Date of Discharge: 11/29/17 Minutes to complete discharge: 35 <Ford Echavarria - Last Filed: 11/29/17 17:42> Physical Exam: Patient seen and examined, agree with the resident's plan. Patient was found to have Cdiff antigen positive and toxin negative,was placed on isolation and cdiff PCR was send. Patient is being discharged home on PO Vancomycin , Levaquin and po Flagyl, and probiotics. Patient will follow up with as an outpatient for further w/u and colonoscopy. Patient tolerated diet. Vital Signs Temperature 98.2 F 11/29/17 17:15 Pulse Rate 116 H 11/29/17 17:15 Respiratory Rate 18 11/29/17 17:15 Blood Pressure 144/93 11/29/17 17:15 O2 Sat by Pulse Oximetry (%) 98 11/29/17 08:00 CBCD WBC 11.0 K/mm3 (4.0-10.0) H 11/29/17 06:00 RBC 4.68 M/mm3 (4.00-5.60) 11/29/17 06:00 Hgb 13.7 GM/dL (11.7-16.9) 11/29/17 06:00 Hct 40.8 % (35.4-49) 11/29/17 06:00 MCV 87.1 fl (80-96) 11/29/17 06:00 MCHC 33.5 g/dl (32.0-35.9) 11/29/17 06:00 RDW 13.7 % (11.9-15.9) 11/29/17 06:00 Plt Count 232 K/MM3 (134-434) D 11/29/17 06:00 MPV 10.1 fl (7.5-11.1) 11/29/17 06:00 CMP Sodium 138 mmol/L (136-145) 11/27/17 15:10 Potassium 4.0 mmol/L (3.5-5.1) 11/27/17 15:10 Chloride 101 mmol/L (98-107) 11/27/17 15:10 Carbon Dioxide 29 mmol/L (21-32) 11/27/17 15:10 Anion Gap 8 (8-16) 11/27/17 15:10 BUN 15 mg/dL (7-18) 11/27/17 15:10 Creatinine 0.8 mg/dL (0.7-1.3) 11/27/17 15:10 Creat Clearance w eGFR > 60 (>60) 11/26/17 06:05 Random Glucose 91 mg/dL (74-106) 11/27/17 15:10 Calcium 8.3 mg/dL (8.5-10.1) L 11/27/17 15:10 Total Bilirubin 0.8 mg/dL (0.2-1.0) 11/26/17 06:05 AST 22 U/L (15-37) D 11/26/17 06:05 ALT 20 U/L (12-78) D 11/26/17 06:05 Alkaline Phosphatase 88 U/L (45-117) 11/26/17 06:05 Total Protein 6.2 g/dl (6.4-8.2) L 11/26/17 06:05 Albumin 3.0 g/dl (3.4-5.0) L 11/26/17 06:05 CARDIAC ENZYMES Creatine Kinase 77 IU/L (39-308) 11/25/17 15:20 Troponin I 0.07 ng/ml (0.00-0.05) H D 11/25/17 15:20 Laboratory Tests 11/25/17 11/26/17 11/26/17 15:20 06:05 06:05 WBC 18.5 H D 17.3 H BUN 24 H Creatinine 0.9 C-Reactive Protein 11/27/17 11/27/17 11/27/17 06:48 06:48 15:10 WBC 13.6 H 12.4 H BUN 17 D Creatinine 0.8 C-Reactive Protein 6.3 H 11/27/17 11/29/17 11/29/17 15:10 06:00 06:00 WBC 11.0 H BUN 15 Creatinine 0.8 C-Reactive Protein 2.7 H <Tara Hooper - Last Filed: 11/30/17 07:34> Discharge Summary Reason For Visit: COLITIS, ABDOMINAL PAIN, HYPERTENSION Current Active Problems Colitis (Acute) Diarrhea (Acute) Hematochezia (Acute) Rectal bleeding (Acute) - Home Medications Comprehensive Discharge Medication List: Ambulatory Orders Dextroamphetamine Sulfate [Dexedrine] 20 mg PO 5XD 06/29/17 Dalfampridine [Ampyra] 10 mg PO BID 11/25/17 Hydromorphone HCl [Exalgo] 8 mg PO HS 11/25/17 Hydromorphone HCl [Exalgo] 16 mg PO AM 11/25/17 Pregabalin [Lyrica] 200 mg PO TID 11/25/17 Cyclobenzaprine HCl [Flexeril 10 mg] 10 mg PO DAILY PRN 11/26/17 Fluticasone Prop 0.05% Nasal [Flonase -] 1 spray NS PRN 11/26/17 Amlodipine Besylate [Norvasc -] 5 mg PO DAILY #30 tablet 11/27/17 Lisinopril [Prinivil] 20 mg PO DAILY #30 tablet 11/27/17 Lactobacillus Acidophilus [Bacid -] 1 each PO DAILY #7 capsule 11/29/17 Levofloxacin 750 mg PO DAILY #6 tablet 11/29/17 Vancomycin HCl 125 mg PO Q6H #42 capsule 11/29/17 metroNIDAZOLE [Flagyl -] 500 mg PO TID #18 tablet 11/29/17 <Ford Echavarria - Last Filed: 11/29/17 17:42> - Home Medications Comprehensive Discharge Medication List: Ambulatory Orders Dextroamphetamine Sulfate [Dexedrine] 20 mg PO 5XD 06/29/17 Dalfampridine [Ampyra] 10 mg PO BID 11/25/17 Hydromorphone HCl [Exalgo] 8 mg PO HS 11/25/17 Hydromorphone HCl [Exalgo] 16 mg PO AM 11/25/17 Pregabalin [Lyrica] 200 mg PO TID 11/25/17 Cyclobenzaprine HCl [Flexeril 10 mg] 10 mg PO DAILY PRN 11/26/17 Fluticasone Prop 0.05% Nasal [Flonase -] 1 spray NS PRN 11/26/17 Amlodipine Besylate [Norvasc -] 5 mg PO DAILY #30 tablet 11/27/17 Lisinopril [Prinivil] 20 mg PO DAILY #30 tablet 11/27/17 Lactobacillus Acidophilus [Bacid -] 1 each PO DAILY #7 capsule 11/29/17 Levofloxacin 750 mg PO DAILY #6 tablet 11/29/17 Vancomycin HCl 125 mg PO Q6H #42 capsule 11/29/17 metroNIDAZOLE [Flagyl -] 500 mg PO TID #18 tablet 11/29/17 <Tara Hooper - Last Filed: 11/30/17 07:34> Condition: Improved - Instructions Diet, Activity, Other Instructions: You were admitted to the hospital for the treatment of colitis, an inflammation of your large intestine. We treated you with antibiotics in the hospital. You will need to be on antibiotics at home Medical Recommendations: Blood Pressure -Please take amlodipine 5mg once a day for blood pressure -Please take lisinopril 20mg once a day for blood pressure Antibiotics -Please take levoquin 750mg once a day for 6 more days -Please take metronidazole 500mg three times a day for 6 more days -Please take vancomycin 125mg four times a day for 7 more days Referrals -Please make an appointment with your primary care physician within 1 week of discharge -Please make an appointment with Dr. Blackmon, the director of employer services within 1 week of discharge and then 6 weeks to make an appointment for colonoscopy If you experience bleeding in your stool, chest pain, shortness of breath, fevers or chills, please return to the emergency room immediately Referrals: Luis Alberto Blackmon MD [Staff Physician] - 1 Month Disposition: HOME This patient is new to me today: No Emergency Visit: No Critical Care patient: No - Discharge Referral Referred to [facility] Med [facility].C[facility] No <Ford Echavarria - Last Filed: 11/29/17 17:42>
[2017-11-29 19:22] VITALS: BP 144/93; PULSE 116; TEMP 98.2
== END 2017-11-29 19:18 | disposition home or self-care (01) | DRG 372 ==
LOC: JER 14:54 → JERBED 19:48 → J4W 11-26 00:27
PROVIDERS: ADMIT Internal Medicine; ATTEND Internal Medicine
DX: A04.72 Enterocolitis due to Clostridium difficile, not specified as recurrent (principal); K51.511 Left sided colitis with rectal bleeding; I16.1 Hypertensive emergency; K92.1 Melena; F17.210 Nicotine dependence, cigarettes, uncomplicated; I10 Essential (primary) hypertension; G35 Multiple sclerosis; F12.90 Cannabis use, unspecified, uncomplicated
CPT/HCPCS: 36415; 71045-TC-FY; 74176-TC; 80048; 80053; 82272; 82550; 83605; 83690; 83735; 84100; 84484; 85025; 85027; 85044; 85610; 85730; 86140; 86850; 86900; 86901; 87040; 87045; 87046; 87205; 87324; 87449; 93005; 93010; 93306-TC; 99285-25; J0735